=== PATIENT | male | born 1975 | race African-American/Black ===

== ENCOUNTER 2019-04-13 10:39 | Emergency (ER) | payer BC, SELFPAY ==
[2019-04-13 11:09] VITALS: BP 137/82; PULSE 96; RESP 16; TEMP 37.2; O2SAT 98
--- NOTE | 2019-04-13 11:58 | ED.GENADULT ---
HPI - General Adult General Chief complaint: Upper Respiratory Infection Stated complaint: Neck/Chest pain Time Seen by Provider: 04/13/19 11:59 Source: patient and RN notes reviewed Mode of arrival: ambulatory Limitations: no limitations History of Present Illness HPI narrative: This is a 43 years old male presents to the office for an evaluation of chest congestion since yesterday. Associated with mid back pain at times. Denies fever, sinus congestion, runny nose, abdominal pain, vomiting, or diarrhea. He tried 1 dose of Mucinex for his symptoms. Denies sick contact. He does not smoke. Related Data Allergies Allergy/AdvReac Type Severity Reaction Status Date / Time Penicillins Allergy CHILD, Verified 04/13/19 11:17 EYES ROLLED BACK IN HEAD Review of Systems Review of Systems: Narrative: CONSTITUTIONAL: Denies fever, chills ENT: Denies rhinorrhea, congestion, sore throat, otalgia. CARDIOVASCULAR: Denies chest pain, palpitation RESPIRATORY: Reports cough with chest tightness GASTROINTESTINAL: Denies abdominal pain, nausea, vomiting, diarrhea. GENITOURINARY: Denies urinary symptoms or discharge SKIN: Denies rash MUSCULOSKELETAL: Denies acute back pain NEUROLOGIC: Denies lightheaded PMFSH Social History Social History (Updated 04/13/19 @ 12:07 by MAYUR Vann) Smoking status: Never smoker Gender identity (if verbalized by the patient): Male Comments At time of signature, I agree with nursing past medical, surgical, social and family history. There is no relevant family history pertinent to the presenting complaint. Exam Narrative: Exam Narrative: GENERAL: This is a well-nourished, well-developed patient, in no apparent distress. EYES: Sclera clear/white. Vision is grossly intact. EARS: External ears normal, auditory canals clear and without drainage, TMs normal without perforation. Hearing grossly intact. NOSE: External nose normal with no obvious nasal discharge, nares without redness, no rhinorrhea. THROAT: Mucous membranes moist, posterior pharynx clear. NECK: Neck supple, non-tender without lymphadenopathy, masses or thyromegaly. CARDIOVASCULAR: Regular rate and rhythm without murmurs, gallops, or rubs. RESPIRATORY: Clear to auscultation. Breath sounds equal bilaterally. No wheezes, rales, or rhonchi. GASTROINTESTINAL: Abdomen soft, non-tender, nondistended. Bowel sounds are active. No hepato-splenomegaly, or palpable masses. No guarding. SKIN: warm, intact with no suspicious lesions or rash, good texture and turgor. NEURO: awake, alert, and oriented to person, place and time. There were no obvious focal neurologic abnormalities. Steady gait EXTREMITIES: Normal range of motion. No edema. No calf tenderness. Negative Homans sign bilaterally. BACK: Nontender without deformity or crepitance. No flank tenderness. [place] Coma Scale Eye Opening: Spontaneous 4 [place] Coma Scale Motor: Obeys Commands 6 [place] Coma Scale Verbal: Oriented 5 Course Vital Signs Vital signs: Vital Signs Pulse Rate 96 04/13/19 11:09 Respiratory Rate 16 04/13/19 11:09 Blood Pressure 137/82 04/13/19 11:09 Pulse Oximetry 98 04/13/19 11:09 Pulse Rate 96 04/13/19 11:09 Respiratory Rate 16 04/13/19 11:09 Blood Pressure 137/82 04/13/19 11:09 Pulse Oximetry 98 04/13/19 11:09 Medical Decision Making MDM Narrative Medical decision making narrative: Discharge instructions reviewed with patient, as well as provided in writing per nursing staff. The instructions also include specific and strict return/GO TO THE ER as well as f/u information. All questions have been answered, and the patient deny any further questions with discharge and discharge plan. Differential Diagnosis Differential Diagnosis: pneumonia, Allergic Rhinitis, Upper respiratory cough syndrome, Pharyngitis, Sinusitis, Bronchitis, otitis media, viral URI, Asthma/reactive airway disease, influenza Vital
== END 2019-04-13 12:17 | disposition home or self-care (01) ==
PROVIDERS: Emergency Provider Nurse Practitioner
DX: R05 Cough (principal)
CPT/HCPCS: 99203; G0463

== ENCOUNTER 2019-05-18 15:29 | Inpatient (IN) | payer BC, SELFPAY ==
[2019-05-18] VITALS (9 sets, daily range): BP systolic 110–168; BP diastolic 56–81; PULSE 72–122; RESP 16–30; TEMP 37.2–39; O2SAT 86–100
--- NOTE | ~2019-05-18 | XR_ITS ---
EXAMINATION: XR chest 1V portable DATE: 05/26/2019 06:35 INDICATION: COVID-19 pneumonia. TECHNIQUE: A single frontal view of the chest was obtained. COMPARISON: Chest single view 05/23/2019 FINDINGS: There are patchy airspace opacities involving all lung zones bilaterally. No pleural effusi on or pneumothorax. The heart size is normal. Again seen is an opaque foreign body overlying right up per quadrant. IMPRESSION: 1. Unchanged diffuse lung disease, consistent with pneumonia versus acute respiratory distress syndro me (ARDS). Reviewed, dictated and finalized at location A. IMPRESSION: 1. Unchanged diffuse lung disease, consistent with pneumonia versus acute respi ratory distress syndrome (ARDS).
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
--- NOTE | ~2019-05-18 | XR_ITS ---
EXAMINATION: XR chest 1V portable DATE: 05/23/2019 06:50 INDICATION: Covid-19 acute respiratory failure. TECHNIQUE: A single frontal view of the chest was obtained. COMPARISON: Chest single view 05/21/2019 FINDINGS: There are patchy airspace opacities in all lung zones bilaterally. No pleural effusion or p neumothorax. The heart size is normal. A chronic radiopaque foreign body overlies right upper quadran t of the abdomen. IMPRESSION: 1. Unchanged diffuse lung disease, consistent with pneumonia versus pulmonary edema versus acute resp iratory distress syndrome (ARDS). Reviewed, dictated and finalized at location A. IMPRESSION: 1. Unchanged diffuse lung disease, consistent with pneumonia versus pulmonary e [place] versus acute respiratory distress syndrome (ARDS).
--- NOTE | ~2019-05-18 | XR_ITS ---
EXAMINATION: XR chest 1V portable DATE: 05/21/2019 06:36 INDICATION: Pneumonia. TECHNIQUE: A single frontal view of the chest was obtained. COMPARISON: Chest single view 05/18/2019 FINDINGS: There are patchy airspace opacities involving all lung zones bilaterally. No pleural effusi on or pneumothorax. The heart size is normal. Again seen is a 14 mm radiopaque foreign body overlying right upper quadrant of the abdomen. IMPRESSION: 1. Worsened diffuse lung disease, consistent with pneumonia versus pulmonary edema versus acute respi ratory distress syndrome (ARDS). Reviewed, dictated and finalized at location A. IMPRESSION: 1. Worsened diffuse lung disease, consistent with pneumonia versus pulmonary ed [place] versus acute respiratory distress syndrome (ARDS).
--- NOTE | 2019-05-18 15:42 | ECG_ITS ---
Measurements Intervals [place] Rate: 123 P: 184 [place]: 179 QRS: -19 QRSD: 85 T: 8 QT: 307 QTc: 440 Interpretive Statements SINUS TACHYCARDIA INCOMPLETE RIGHT BUNDLE BRANCH BLOCK DELAYED PRECORDIAL R/S TRANSITION VOLTAGE CRITERIA FOR LVH BORDERLINE T WAVE ABNORMALITY- INFERIOR LEADS ABNORMAL ECG Electronically Signed On 05-18-2019 20:04:02 CDT by Abhijeet Nieto D.O.
--- NOTE | 2019-05-18 15:55 | ED.SOB ---
HPI - SOB/Dyspnea General Chief Complaint: Shortness of Breath/Dyspnea Stated Complaint: fever/sob/cough Time Seen by Provider: 05/18/19 15:33 History of Present Illness HPI Narrative: Patient is a 43-year-old male who presents the ER with cold symptoms and shortness of breath. He reports 3 days ago he began having fevers and fatigue. He reports mild cough that is nonproductive. He has been taking Tylenol for his fever. Shortness of breath began yesterday and is persistent. Worse with any type of activity. He works at [employer]. No known contacts with Covid positive patient. No foreign travel. Related Data Allergies Allergy/AdvReac Type Severity Reaction Status Date / Time Penicillins Allergy CHILD, Verified 04/13/19 11:17 EYES ROLLED BACK IN HEAD Review of Systems Review of Systems: All systems reviewed & are unremarkable except as noted in HPI and below Constitutional: Constitutional: Reports chills, Reports fever(s) and Reports weakness ENT: Denies nasal congestion and Denies sore throat Cardiovascular: Cardiovascular: Denies chest pain and Reports rapid heart rate Respiratory: Respiratory: Denies chest congestion, Reports cough, Reports dyspnea and Denies wheezing Gastrointestinal: Gastrointestinal: Denies nausea and Denies vomiting PMFSH Past Medical History Medical History (Updated 05/18/19 @ 18:35 by Jp Lorenzana MD) No pertinent past medical history Surgical History Surgical History (Updated 05/18/19 @ 18:35 by Jp Lorenzana MD) No pertinent past surgical history Social History Social History (Updated 04/13/19 @ 12:07 by MAYUR Vann) Smoking status: Never smoker Gender identity (if verbalized by the patient): Male Exam Narrative: Exam Narrative: GENERAL: Well-appearing, well-nourished, and in no acute distress. HEAD: Normocephalic, atraumatic. NECK: Supple. CHEST: Clear to auscultation. No respiratory distress. HEART: Tachycardic and regular.. Normal peripheral pulses. ABDOMEN: Soft, nontender, nondistended. EXTREMITIES: Normal range of motion. No edema. SKIN: Warm, dry, no rash. NEURO: Alert and oriented x3. PSYCH: Normal mood and affect. Course Consultations Consultation #1: Discussed case with Olga Lidia Christian NP, who accepted admission. Patient hypoxic with ambulation in his room. Now requiring supplemental O2. Date: 05/18/19 Time: 16:43 Vital Signs Vital signs: Vital Signs Temperature 102.2 F H 05/18/19 15:34 Pulse Rate 120 H 05/18/19 15:34 Respiratory Rate 18 05/18/19 15:34 Blood Pressure 125/69 05/18/19 15:34 Pulse Oximetry 93 05/18/19 15:34 Temperature 99.4 F 05/18/19 17:15 Pulse Rate 113 H 05/18/19 18:01 Respiratory Rate 20 05/18/19 18:01 Blood Pressure 168/72 H 05/18/19 17:15 Pulse Oximetry 98 05/18/19 17:15 MDM - SOB/Dyspnea Lab Data Result diagrams: 05/18/19 15:49 05/18/19 15:49 Labs: Lab Results 05/18/19 05/18/19 05/18/19 Range/Units 15:48 15:49 15:49 WBC 4.9 (4.5-10.0) K/mm3 RBC 5.11 (4.6-6.20) M/mm3 Hgb 14.2 (14.0-18.0) g/dL Hct 43.7 (42.0-52.0) % MCV 85.5 (80-100) fl MCH 27.8 (26-34) pg MCHC 32.5 (32-36) g/dl RDW 13.1 (11.5-14.5) % Plt Count 181 (150-375) k/mm3 MPV 11.0 H (7.4-10.4) fl Immature Gran % (Auto) 0.2 (0-0.5) % Neut % (Auto) 79.1 H (45.5-73.1) % Lymph % (Auto) 15.8 L (18.3-44.2) % [place] % (Auto) 4.7 (2.6-8.5) % Eos % (Auto) 0.0 (0-4.4) % Baso % (Auto) 0.2 (0.2-1.2) % Lymph # (Auto) 0.77 L (0.9-3.2) K/mm3 [place] # (Auto) 0.2 (0.1-0.6) K/mm3 Eos # (Auto) 0.0 (0-0.3) K/mm3 Baso # (Auto) 0.0 (0.0-0.1) K/mm3 Abs Immat Gran (auto) 0.01 (0.00-0.031) K/mm3 Absolute Neuts (auto) 3.8 (1.3-6.7) K/mm3 Absolute Nucleated RBC 0.0 (0.0-0.012) K/mm3 Nucleated RBC % 0.0 (0.0-0.2) % Sodium 138 (137-145) mmol/L
[2019-05-18 15:56] LABS: Basophils Percent Auto 0.2 % (0.2-1.2); Hematocrit 43.7 % (42.0-52.0); Hemoglobin 14.2 g/dL (14.0-18.0); Immature Granulocyte Absolute 0.01 K/mm3 (0.00-0.031); Immature Granulocyte Percent A 0.2 % (0-0.5); Lymphocytes Absolute Auto 0.77 K/mm3 (0.9-3.2); Lymphocytes Percent Auto 15.8 % (18.3-44.2); Mean Corpuscular HGB Conc 32.5 g/dl (32-36); Mean Corpuscular Hemoglobin 27.8 pg (26-34); Mean Corpuscular Volume 85.5 fl (80-100); Monocytes Absolute Auto 0.2 K/mm3 (0.1-0.6); Monocytes Percent Auto 4.7 % (2.6-8.5); Neutrophils Absolute Auto 3.8 K/mm3 (1.3-6.7); Neutrophils Percent Auto 79.1 % (45.5-73.1); Platelet Count Result 181 k/mm3 (150-375); Red Blood Count 5.11 M/mm3 (4.6-6.20); Red Cell Distribution Width 13.1 % (11.5-14.5); White Blood Count 4.9 K/mm3 (4.5-10.0)
[2019-05-18] MEDS: SODIUM CHLORIDE 0.9% IV 1,000 ML 999 ML IV CONT (15:57)
[2019-05-18 16:09] LABS: Alanine Aminotransferase 44 U/L (4-50); Albumin Level 4.4 g/dL (3.5-5.1); Alkaline Phosphatase 71 U/L (38-126); Aspartate Amino Transferase 40 U/L (17-59); Bilirubin,Total 0.7 mg/dL (0.2-1.3); Blood Urea Nitrogen 13 mg/dL (9-20); Calcium 8.5 mg/dL (8.4-10.2); Carbon Dioxide 27 mmol/L (22-30); Chloride 102 mmol/L (98-107); Estimated CRCL calculation 79 ml/min; Estimated Glomerular Filt Rate > 60; Glucose 129 mg/dL (75-110); Potassium 3.9 mmol/L (3.4-5.0); Sodium 138 mmol/L (137-145)
[2019-05-18] MEDS: ACETAMINOPHEN 500 MG TABLET PO (16:24)
[2019-05-18 17:01] LABS: Lactic Acid Reflex 1.5 mmol/L (0.7-2.1)
[2019-05-18 17:39] LABS: CRP 6.1 mg/dL (<1.0); Lactate Dehydrogenase 655 U/L (313-618)
--- NOTE | 2019-05-18 19:46 | ADMGEN ---
This patient, Camilo Lee, was admitted to [facility] Surg Room 332-02. Patient/family oriented to hospital policies and general routines including ID bracelet, bed and alarms, visiting hours, pain management, procedures, bathroom and other care routines, personal items, smoking policy, room service/diet, and visiting hours. Valuables list has been completed. Information on how to activate the Rapid Response Team has been discussed. Patient/Family are encouraged to report perceived risks to care and to ask questions if they do not understand what they are told or what they should do.
[2019-05-18] MEDS: ACETAMINOPHEN 325 MG TABLET 650 MG PO (19:54)
[2019-05-18] MEDS: ALBUTEROL SULFATE (*SP) AEROSOL 1 PUFF 2 PUFF INHALATION (20:37)
--- NOTE | 2019-05-18 23:14 | PM.IMHP ---
H&P: HPI History of Present Illness Chief complaint: viral pneumonia/possible covid/hypoxia Narrative: Camilo Lee is a 43 year old male who came to work with cold-like symptoms and shortness of breath. The patient stated he has been running a fever on and off for 3 days with fatigue and nonproductive cough has been dry. The patient has been using Tylenol for his fever. He denies being out of the country or traveling anywhere. He works for [employer] in said that he has been off work for at least a week now. He said he is been self quarantined for at least the last week. He has not been around any by has been positive for covid 19. He has not been around anybody else that is sick. His works from home. He has no children at home either. He is not known of anybody that was sick at work either. He states that he has been very careful going to the stores and has not been around anybody sick. He stated that the highest fever was 103. The patient stated that his shortness of breath worsened yesterday and was persistent. The patient is a nonsmoker. He does not have any chronic medical conditions. Chest x-ray was read as bilateral nonconfluent patchy opacities most likely acute acute infectious process. The patient was started on aZithromax. He was negative for influenza a and B. LDH was noted to be 655. C reactive protein 6.1. Patient was tested for covid 19 in the emergency room. We are awaiting results. Patient is currently in isolation. Date of service 05/18/2019 Review of Systems Review of Systems: All systems reviewed & are unremarkable except as noted in HPI and below Constitutional: Constitutional: Reports as per HPI and Reports no additional constitutional complaints Eyes: Eyes: Reports as per HPI and Reports no additional eye complaints ENT: Reports system reviewed and no additional complaints, except as documented and Reports Normal hearing present Cardiovascular: Cardiovascular: Reports no additional cardiovascular complaints Respiratory: Respiratory: Reports no additional respiratory complaints and Reports no additional respiratory complaints Gastrointestinal: Gastrointestinal: Reports as per HPI and Reports no additional gastrointestinal complaints Musculoskeletal: Musculoskeletal: Reports no additional musculoskeletal complaints Integumentary/Breasts: Skin/Breast: Reports system reviewed and no additional complaints, except as docu and Reports as per HPI Neurologic: Reports system reviewed and no additional complaints, except as documented, Reports as per HPI and Reports Normal hearing present Psychiatric: Psychiatric: Reports no additional psychiatric complaints and Reports as per HPI Endocrine: Endocrine: Reports no additional endocrine complaints Hematologic/Lymphatic: Hematologic/Lymphatic: Reports no additional hematologic/lymphatic complaints Allergic/Immunologic: Allergic/Immunologic: Reports no additional allergic/immunologic complaints PMFSH Past Medical History Medical History No pertinent past medical history Surgical History Surgical History No pertinent past surgical history Family History Family History (Updated 05/18/19 @ 23:19 by Olga Lidia Christian NP) Unknown No family history of disorders Social History Social History (Updated 05/18/19 @ 23:20 by Olga Lidia Christian NP) Social History: The patient stated that he has 8 children. He works at [employer] Lifelong nonsmoker no alcohol or illicit drugs. 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 The patient is a full code. Smoking status: Never smoker Alcohol intake: never Substance use: never Living arrangements: with family Gender identity (if verbalized by the patient): Male Spiritual care concerns: No Agree to blood products: Yes Meds Home Medications and Allergies Home Medications Medicat
[2019-05-19] VITALS (13 sets, daily range): BP systolic 140–159; BP diastolic 78–94; PULSE 90–111; RESP 16–22; TEMP 36.6–38.2; O2SAT 94–97
[2019-05-19] MEDS: ACETAMINOPHEN 325 MG TABLET 650 MG PO
[2019-05-19 06:21] LABS: Basophils Percent Auto 0.2 % (0.2-1.2); Hemoglobin 12.9 g/dL (14.0-18.0); Immature Granulocyte Absolute 0.01 K/mm3 (0.00-0.031); Immature Granulocyte Percent A 0.2 % (0-0.5); Lymphocytes Absolute Auto 0.75 K/mm3 (0.9-3.2); Lymphocytes Percent Auto 17.9 % (18.3-44.2); Mean Corpuscular HGB Conc 33.1 g/dl (32-36); Mean Corpuscular Volume 84.8 fl (80-100); Mean Platelet Volume 10.4 fl (7.4-10.4); Monocytes Absolute Auto 0.2 K/mm3 (0.1-0.6); Monocytes Percent Auto 5.3 % (2.6-8.5); Neutrophils Absolute Auto 3.2 K/mm3 (1.3-6.7); Neutrophils Percent Auto 76.4 % (45.5-73.1); Platelet Count Result 162 k/mm3 (150-375); Red Cell Distribution Width 12.9 % (11.5-14.5); White Blood Count 4.2 K/mm3 (4.5-10.0)
[2019-05-19 07:21] LABS: Alanine Aminotransferase 41 U/L (4-50); Albumin Level 3.9 g/dL (3.5-5.1); Alkaline Phosphatase 58 U/L (38-126); Aspartate Amino Transferase 38 U/L (17-59); Bilirubin,Total 0.7 mg/dL (0.2-1.3); Blood Urea Nitrogen 11 mg/dL (9-20); CRP 7.7 mg/dL (<1.0); Carbon Dioxide 27 mmol/L (22-30); Chloride 103 mmol/L (98-107); Estimated CRCL calculation 104 ml/min; Estimated Glomerular Filt Rate > 60; Glucose 131 mg/dL (75-110); Sodium 137 mmol/L (137-145)
[2019-05-19] MEDS: PANTOPRAZOLE 40 MG TABLET PO (09:08)
[2019-05-19] MEDS: ALBUTEROL SULFATE (*SP) AEROSOL 1 PUFF 2 PUFF INHALATION ×4 (09:08→20:22)
--- NOTE | 2019-05-19 14:22 | PM.IMPN ---
Progress Note: A&P Assessment and Plan (1) Viral pneumonia: Code(s): J12.9 - Viral pneumonia, unspecified Status: Acute Assessment and Plan: -----viral pneumonia with suspected COVID-19. Patient's LDH and CRP are elevated and ALT are within normal limits. Will continue with supportive care, throw mycin, and albuterol MDI. Patient is on 2 L oxygen at this time and doing well. Continue to monitor, await testing. (2) Suspected COVID-19 virus infection: Code(s): R68.89 - Other general symptoms and signs Status: Acute Assessment and Plan: ----see above (3) Hypoxia: Code(s): R09.02 - Hypoxemia Status: Acute Assessment and Plan: (4) Acute respiratory failure with hypoxia: Code(s): J96.01 - Acute respiratory failure with hypoxia Status: Acute Assessment and Plan: -----due to above. Wean oxygen as tolerated Time Spent With Patient Time with patient: 25 - 35 minutes Subjective Date/time seen: 05/19/19 14:22 Interval history: Pt is a 43-year-old male who is here for viral pneumonia suspected COVID-19. Patient was seen today and states he feels okay. He feels short of breath randomly at times and does not think this is associated with any movement. He is coughing a lot. He denies fevers, chills, abdominal pain, leg swelling, diarrhea, or lack of smell or taste. He has stabbing chest pain on the left side of his chest that hurts when he coughs. Review of Systems Review of Systems: All systems reviewed & are unremarkable except as noted in HPI and below Exam Narrative: Exam Narrative: General: Well developed well nourished patient resting comfortably in bed in NAD on 2 L of oxygen HEENT: normocephalic Neck: supple Neuro: Alert and oriented x4 CV:RRR. Telemetry without significant alarm reviews Resp: Rhonchi mostly in the left lung. Please note, lung exam was done with the disposable stethoscope which lowers sensitivity. Patient had no conversational dyspnea or retractions. Abd: Soft, non distended. No pain to palpation. Positive bowel sounds Extremities: No swelling, erythema, or pain to palpation. Objective Data Vital Signs Vital Signs: Vital Signs - 24 hr 05/18/19 15:34 05/18/19 16:21 05/18/19 16:22 Temperature 102.2 F H Pulse Rate 120 H 122 H 119 H Respiratory Rate 18 30 H 28 H Blood Pressure 125/69 110/81 Pulse Oximetry 93 86 L 100 05/18/19 16:23 05/18/19 17:15 05/18/19 18:00 Temperature 99.4 F 99.6 F Pulse Rate 119 H 78 100 Respiratory Rate 18 16 Blood Pressure 168/72 H 160/74 H Pulse Oximetry 98 94 05/18/19 18:01 05/18/19 20:00 05/18/19 22:00 Temperature 99.0 F 100.6 F H Pulse Rate 113 H 99 72 Respiratory Rate 20 18 Blood Pressure 132/56 L Pulse Oximetry 94 05/19/19 00:00 05/19/19 02:00 05/19/19 04:00 Temperature 100.6 F H 99.0 F Pulse Rate 99 99 101 H Respiratory Rate 18 Blood Pressure 159/93 H Pulse Oximetry 94 05/19/19 05:15 05/19/19 05:40 05/19/19 08:00 Temperature 99.5 F 99.5 F Pulse Rate 100 90 Respiratory Rate 20 Blood Pressure 158/90 H Pulse Oximetry 94 05/19/19 10:00 05/19/19 14:00 Temperature 98.2 F 97.8 F Pulse Rate 96 101 H Respiratory Rate 16 18 Blood Pressure 141/82 H 142/78 H Pulse Oximetry 94 94 Intake/Output Intake/Output: Intake & Output 05/16/19 05/17/19 05/18/19 05/19/19 23:59 23:59 23:59 23:59 Intake Total 1250 1100 Balance 1250 1100 Meds/Results Medications: Active Medications Generic Name Dose Route Start Last Admin Trade Name Freq PRN Reason Stop Dose Admin Acetaminophen 650 mg 05/18/19 16:54 05/19/19 00:00 Tylenol Tablet PO 650 mg Q4H PRN Administration Mild Pain (1-3) or Fever Hydrocodone Bitart/Acetaminophen 1 tab 05/18/19 16:54 05/19/19 05:16 [place] 5-325 Mg PO 1 tab Q4H PRN Administration Pain Rated 4-6 Albuterol 2 puff 05/18/19 20:00 05/19/19 12:44
[2019-05-20] VITALS (15 sets, daily range): BP systolic 132–148; BP diastolic 76–89; PULSE 96–111; RESP 16–22; TEMP 36.8–38.1; O2SAT 91–95
[2019-05-20 05:56] LABS: Hematocrit 40.8 % (42.0-52.0); Hemoglobin 13.1 g/dL (14.0-18.0); Mean Corpuscular HGB Conc 32.1 g/dl (32-36); Mean Corpuscular Hemoglobin 28.1 pg (26-34); Mean Corpuscular Volume 87.4 fl (80-100); Mean Platelet Volume 10.8 fl (7.4-10.4); Platelet Count Result 187 k/mm3 (150-375); Red Blood Count 4.67 M/mm3 (4.6-6.20); Red Cell Distribution Width 13.2 % (11.5-14.5)
[2019-05-20 05:58] LABS: Alanine Aminotransferase 39 U/L (4-50); Albumin Level 4.1 g/dL (3.5-5.1); Alkaline Phosphatase 67 U/L (38-126); Aspartate Amino Transferase 37 U/L (17-59); Bilirubin,Total 0.7 mg/dL (0.2-1.3); Blood Urea Nitrogen 11 mg/dL (9-20); Calcium 8.3 mg/dL (8.4-10.2); Carbon Dioxide 31 mmol/L (22-30); Chloride 99 mmol/L (98-107); Estimated CRCL calculation 85 ml/min; Estimated Glomerular Filt Rate > 60; Glucose 143 mg/dL (75-110); Potassium 4.1 mmol/L (3.4-5.0); Sodium 136 mmol/L (137-145)
[2019-05-20] MEDS: PANTOPRAZOLE 40 MG TABLET PO (08:36)
[2019-05-20] MEDS: ALBUTEROL SULFATE (*SP) AEROSOL 1 PUFF 2 PUFF INHALATION ×4 (08:51→21:09)
--- NOTE | 2019-05-20 14:21 | PM.IMPN ---
Progress Note: A&P Assessment and Plan (1) Viral pneumonia: Code(s): J12.9 - Viral pneumonia, unspecified Status: Acute Assessment and Plan: -----viral pneumonia with suspected COVID-19. Patient's LDH and CRP are elevated. Will re-run this tomorrow. Will continue with supportive care, azithromycin and albuterol MDI. Patient is on 4 L oxygen at this time and doing well. Continue to monitor, await testing. Wean o2 as tolerated. Will repeat CXR tomorrow AM. (2) Suspected COVID-19 virus infection: Code(s): R68.89 - Other general symptoms and signs Status: Acute Assessment and Plan: ----see above (3) Hypoxia: Code(s): R09.02 - Hypoxemia Status: Acute (4) Acute respiratory failure with hypoxia: Code(s): J96.01 - Acute respiratory failure with hypoxia Status: Acute Assessment and Plan: -----due to above. Wean oxygen as tolerated Subjective Date/time seen: 05/20/19 14:21 Interval history: Pt is a 44-year-old male who is here for viral pneumonia suspected COVID-19. Patient was seen today and states he feels okay and feels better than yesterday. He feels short of breath randomly mostly when he coughs. he does have some left sided chest pain when he coughs that is improving as well. he is eating and drinking fine without issues. He denies fevers, chills, abdominal pain, leg swelling, diarrhea, or lack of smell or taste. He is a little sad that he is in the hospital on his birthday. Exam Narrative: Exam Narrative: General: Well developed well nourished patient resting comfortably in bed in [facility] on 4 L of oxygen HEENT: normocephalic Neck: supple Neuro: Alert and oriented x4 CV:RRR. Telemetry without significant alarm reviews. It does show occasional tachycardia up to 120 Resp: Decreased breath sounds with no wheezing. Please note, lung exam was done with the disposable stethoscope which lowers sensitivity. Patient had no conversational dyspnea or retractions. Abd: Soft, non distended. No pain to palpation. Positive bowel sounds Extremities: No swelling, erythema, or pain to palpation. Objective Data Vital Signs Vital Signs: Vital Signs - 24 hr 05/19/19 16:00 05/19/19 18:00 05/19/19 20:00 Temperature 100.7 F H Pulse Rate 111 H 106 H 96 Respiratory Rate 22 H Blood Pressure 143/94 H Pulse Oximetry 94 05/19/19 22:00 05/20/19 00:00 05/20/19 02:00 Temperature 99.2 F 98.8 F Pulse Rate 97 96 111 H Respiratory Rate 20 22 H Blood Pressure 140/80 132/76 Pulse Oximetry 97 94 05/20/19 04:00 05/20/19 06:00 05/20/19 08:00 Temperature 99 F Pulse Rate 102 H 96 97 Respiratory Rate 20 Blood Pressure 143/87 H Pulse Oximetry 94 05/20/19 08:52 05/20/19 11:18 05/20/19 12:00 Temperature 98.3 F Pulse Rate 98 101 H Respiratory Rate 16 Blood Pressure 148/83 H Pulse Oximetry 93 91 Intake/Output Intake/Output: Intake & Output 05/17/19 05/18/19 05/19/19 05/20/19 23:59 23:59 23:59 23:59 Intake Total 1250 1989 690 Balance 1250 1989 690 Meds/Results Medications: Active Medications Generic Name Dose Route Start Last Admin Trade Name Freq PRN Reason Stop Dose Admin Acetaminophen 650 mg 05/19/19 14:33 Tylenol Tablet PO Q4H PRN Mild Pain (1-5) Or Fever Hydrocodone Bitart/Acetaminophen 1 tab 05/19/19 14:33 05/20/19 12:39 [place] 5-325 Mg PO 1 tab Q4H PRN Administration Pain Rated 6-10 Albuterol 2 puff 05/18/19 20:00 05/20/19 13:05 Proventil Hfa INHALATION 2 puff QIDRT VIKA Administration Albuterol/Ipratropium 1 puff 05/18/19 23:24 Combivent Respimat INHALATION QIDRT PRN Shortness Of Breath Azithromycin 500 mg in 250 mls @ 250 mls/hr 05/19/19 09:00 05/20/19 09:36 Zithromax IVPB Infused Q24H VIKA Infusion Ondansetron HCl 4 mg 05/18/19 16:54 Zofran Inj IV PUSH Q4H PRN Nausea Pantoprazole Sodium 40 m
[2019-05-20] MEDS: TEMAZEPAM 15 MG CAPSULE PO (23:15)
[2019-05-21] VITALS (13 sets, daily range): BP systolic 132–147; BP diastolic 71–88; PULSE 92–100; RESP 16–20; TEMP 36.7–37.7; O2SAT 90–99
[2019-05-21 06:15] LABS: Hematocrit 39.1 % (42.0-52.0); Hemoglobin 12.8 g/dL (14.0-18.0); Mean Corpuscular HGB Conc 32.7 g/dl (32-36); Mean Corpuscular Hemoglobin 27.9 pg (26-34); Mean Corpuscular Volume 85.2 fl (80-100); Mean Platelet Volume 10.6 fl (7.4-10.4); Platelet Count Result 226 k/mm3 (150-375); Red Blood Count 4.59 M/mm3 (4.6-6.20); Red Cell Distribution Width 12.9 % (11.5-14.5); White Blood Count 5.4 K/mm3 (4.5-10.0)
[2019-05-21 06:37] LABS: Blood Urea Nitrogen 13 mg/dL (9-20); Calcium 8.6 mg/dL (8.4-10.2); Carbon Dioxide 30 mmol/L (22-30); Chloride 100 mmol/L (98-107); Estimated CRCL calculation 103 ml/min; Estimated Glomerular Filt Rate > 60; Glucose 129 mg/dL (75-110); Lactate Dehydrogenase 1033 U/L (313-618); Potassium 4.2 mmol/L (3.4-5.0); Sodium 138 mmol/L (137-145)
[2019-05-21 06:52] LABS: CRP 15.2 mg/dL (<1.0)
--- NOTE | 2019-05-21 07:39 | PC.NURSE ---
I notified Cristy GOMEZ of CXR results from this morning. ALso reviewed LFTs and elevated CRP as well as temp curve overnight. I advised her that current 02 sat was 90% on 6L/NC (was on 2 L /NC yesterday am with 02 sat 96%). I reported that staff state no increasing SOB overnight and that 02 maintained at 6L/NC since yesterday afternoon. Patient denies increased SOB at this time - no change from yesterday. No new orders at this time.
[2019-05-21] MEDS: ALBUTEROL SULFATE (*SP) AEROSOL 1 PUFF 2 PUFF INHALATION ×4 (09:40→20:07)
[2019-05-21] MEDS: PANTOPRAZOLE 40 MG TABLET PO (11:18)
--- NOTE | 2019-05-21 11:42 | PM.IMPN ---
Progress Note: A&P Assessment and Plan (1) Viral pneumonia: Code(s): J12.9 - Viral pneumonia, unspecified Status: Acute Assessment and Plan: Viral pneumonia with suspected COVID-19 - testing is pending. LDH and CRP elevated. Continue azithromycin (day 3) and albuterol MDI. Continue supportive care and supplemental O2. Requiring up to 6L O2 nasal cannula today and repeat chest XR this AM with worsening airspace disease, despite the patient feeling improved. (2) Suspected COVID-19 virus infection: Code(s): R68.89 - Other general symptoms and signs Status: Acute Assessment and Plan: See above. (3) Acute respiratory failure with hypoxia: Code(s): J96.01 - Acute respiratory failure with hypoxia Status: Acute Assessment and Plan: Secondary to above. Wean O2 as tolerated. Subjective Date/time seen: 05/21/19 0830 Interval history: Mr. Lee is a 44yo M admitted for pneumonia and suspected COVID-19. He reports feeling better than yesterday but continues to feel short of breath with little activity. He denies chest pain. He denies abdominal pain, nausea, and vomiting. Tolerating oral intake. Review of Systems Review of Systems: Narrative: Twelve systems were reviewed with pertinent positives and negatives as per HPI. Exam Narrative: Exam Narrative: General: Male resting supine in bed in no acute distress. HEENT: Normocephalic, EOMI, oral mucosa moist. Cardiovascular: Rate and rhythm are regular. Respiratory: Coarse breath sounds throughout. Respirations are even and nonlabored. Abdomen: Soft, non-tender, non-distended, bowel sounds present. Extremities: Peripheral pulses intact. No edema. Neuro: No focal neurological deficits. Speech is clear. Objective Data Vital Signs Vital Signs: Last Vital Signs Temp 98.3 F 05/21/19 14:00 Pulse 95 05/21/19 16:00 Resp 18 05/21/19 14:00 BP 132/87 05/21/19 14:00 Pulse Ox 95 05/21/19 14:00 Intake/Output Intake/Output: Intake & Output 05/18/19 05/19/19 05/20/19 05/21/19 23:59 23:59 23:59 23:59 Intake Total 1250 1989 1790 550 Output Total 200 Balance 1250 1989 1789 350 Meds/Results Medications: Active Medications Generic Name Dose Route Start Last Admin Trade Name Freq PRN Reason Stop Dose Admin Acetaminophen 650 mg 05/19/19 14:33 Tylenol Tablet PO Q4H PRN Mild Pain (1-5) Or Fever Hydrocodone Bitart/Acetaminophen 1 tab 05/19/19 14:33 05/21/19 11:18 [place] 5-325 Mg PO 1 tab Q4H PRN Administration Pain Rated 6-10 Albuterol 2 puff 05/18/19 20:00 05/21/19 09:40 Proventil Hfa INHALATION 2 puff QIDRT VIKA Administration Albuterol/Ipratropium 1 puff 05/18/19 23:24 Combivent Respimat INHALATION QIDRT PRN Shortness Of Breath Azithromycin 500 mg in 250 mls @ 250 mls/hr 05/19/19 09:00 05/21/19 11:36 Zithromax IVPB 250 mls/hr Q24H VIKA Administration Ondansetron HCl 4 mg 05/18/19 16:54 Zofran Inj IV PUSH Q4H PRN Nausea Pantoprazole Sodium 40 mg 05/19/19 09:00 05/21/19 11:18 Protonix PO 40 mg DAILY VIKA Administration Temazepam 15 mg 05/20/19 22:33 05/20/19 23:15 Restoril PO 15 mg HS PRN Administration Insomnia Radiology Results: ITS Impressions Chest X-Ray 05/21/19 07:05 IMPRESSION: 1. Worsened diffuse lung disease, consistent with pneumonia versus pulmonary edema versus acute respiratory distress syndrome (ARDS). Labs Labs: Laboratory Tests 05/21/19 06:04 05/21/19 06:04 Quality VTE Prophylaxis VTE prophylaxis: mechanical ordered
[2019-05-22] VITALS (11 sets, daily range): BP systolic 125–159; BP diastolic 68–97; PULSE 84–103; RESP 12–22; TEMP 36.3–36.8; O2SAT 91–94; BMI 34.0
[2019-05-22 06:01] LABS: Basophils Percent Auto 0.4 % (0.2-1.2); Eosinophils Absolute Auto 0.1 K/mm3 (0-0.3); Eosinophils Percent Auto 1.8 % (0-4.4); Hematocrit 41.2 % (42.0-52.0); Hemoglobin 13.4 g/dL (14.0-18.0); Immature Granulocyte Absolute 0.07 K/mm3 (0.00-0.031); Immature Granulocyte Percent A 1.4 % (0-0.5); Lymphocytes Percent Auto 17.6 % (18.3-44.2); Mean Corpuscular HGB Conc 32.5 g/dl (32-36); Mean Corpuscular Hemoglobin 28.1 pg (26-34); Mean Corpuscular Volume 86.4 fl (80-100); Mean Platelet Volume 10.3 fl (7.4-10.4); Monocytes Absolute Auto 0.4 K/mm3 (0.1-0.6); Monocytes Percent Auto 7.3 % (2.6-8.5); Neutrophils Absolute Auto 3.7 K/mm3 (1.3-6.7); Neutrophils Percent Auto 71.5 % (45.5-73.1); Platelet Count Result 251 k/mm3 (150-375); Red Blood Count 4.77 M/mm3 (4.6-6.20); Red Cell Distribution Width 12.6 % (11.5-14.5); White Blood Count 5.1 K/mm3 (4.5-10.0)
[2019-05-22 06:23] LABS: Alanine Aminotransferase 165 U/L (4-50); Alkaline Phosphatase 79 U/L (38-126); Aspartate Amino Transferase 139 U/L (17-59); Bilirubin,Total 0.7 mg/dL (0.2-1.3); Blood Urea Nitrogen 15 mg/dL (9-20); CRP 7.7 mg/dL (<1.0); Calcium 8.7 mg/dL (8.4-10.2); Carbon Dioxide 34 mmol/L (22-30); Chloride 100 mmol/L (98-107); Estimated CRCL calculation 122 ml/min; Estimated Glomerular Filt Rate > 60; Glucose 127 mg/dL (75-110); Lactate Dehydrogenase 1177 U/L (313-618); Magnesium 2.8 mg/dL (1.6-2.3); Phosphorus 4.6 mg/dL (2.5-4.5); Potassium 4.2 mmol/L (3.4-5.0); Sodium 140 mmol/L (137-145)
[2019-05-22] MEDS: PANTOPRAZOLE 40 MG TABLET PO (08:15)
[2019-05-22] MEDS: ALBUTEROL SULFATE (*SP) AEROSOL 1 PUFF 2 PUFF INHALATION ×3 (10:55→20:10)
--- NOTE | 2019-05-22 12:07 | PM.IMPN ---
Progress Note: A&P Assessment and Plan (1) Viral pneumonia: Code(s): J12.9 - Viral pneumonia, unspecified Status: Acute Assessment and Plan: Pneumonia, COVID-19 positive. Continue azithromycin (day 4) and albuterol MDI. Continue supportive care and supplemental O2. O2 requirements increasing today despite patient feeling about the same, from 6L now to 9L HFNC. Encourage prone positioning as often and as long as he can tolerate. Repeat chest XR in AM. (2) COVID-19: Code(s): U07.1 - COVID-19 Status: Acute Assessment and Plan: See above. (3) Acute respiratory failure with hypoxia: Code(s): J96.01 - Acute respiratory failure with hypoxia Status: Acute Assessment and Plan: Secondary to above. Wean O2 as tolerated. Subjective Date/time seen: 05/22/19 12:15 Interval history: Mr. Lee is a 44yo M admitted for pneumonia and is COVID-19 positive. He continues to feel mildly short of breath today and notes that he feels about the same as yesterday. He denies chest pain. He denies abdominal pain, nausea, or vomiting, tolerating oral intake. Wants to know when he can go home. Review of Systems Review of Systems: Narrative: Twelve systems were reviewed with pertinent positives and negatives as per HPI. Exam Narrative: Exam Narrative: General: Male resting supine in bed in no acute distress. HEENT: Normocephalic, EOMI, oral mucosa moist. Cardiovascular: Rate and rhythm are regular. Respiratory: Coarse breath sounds throughout. Respirations are even and nonlabored. Abdomen: Soft, non-tender, non-distended, bowel sounds present. Extremities: Peripheral pulses intact. No edema. Neuro: No focal neurological deficits. Speech is clear. Objective Data Vital Signs Vital Signs: Last Vital Signs Temp 98.2 F 05/22/19 16:03 Pulse 92 04/08/20 16:22 Resp 20 05/22/19 16:03 BP 148/94 H 05/22/19 16:03 Pulse Ox 94 05/22/19 16:03 Intake/Output Intake/Output: Intake & Output 05/19/19 05/20/19 05/21/19 05/22/19 23:59 23:59 23:59 23:59 Intake Total 1989 1790 1960 420 Output Total 200 300 Balance 1989 1789 1760 120 Meds/Results Medications: Active Medications Generic Name Dose Route Start Last Admin Trade Name Freq PRN Reason Stop Dose Admin Acetaminophen 650 mg 05/19/19 14:33 Tylenol Tablet PO Q4H PRN Mild Pain (1-5) Or Fever Hydrocodone Bitart/Acetaminophen 1 tab 05/19/19 14:33 05/22/19 11:08 [place] 5-325 Mg PO 1 tab Q4H PRN Administration Pain Rated 6-10 Albuterol 2 puff 05/18/19 20:00 05/22/19 10:55 Proventil Hfa INHALATION 2 puff QIDRT VIKA Administration Albuterol/Ipratropium 1 puff 05/18/19 23:24 Combivent Respimat INHALATION QIDRT PRN Shortness Of Breath Azithromycin 500 mg in 250 mls @ 250 mls/hr 05/19/19 09:00 05/22/19 08:16 Zithromax IVPB 250 mls/hr Q24H VIKA Administration Ondansetron HCl 4 mg 05/18/19 16:54 Zofran Inj IV PUSH Q4H PRN Nausea Pantoprazole Sodium 40 mg 05/19/19 09:00 05/22/19 08:15 Protonix PO 40 mg DAILY VIKA Administration Temazepam 15 mg 05/20/19 22:33 05/20/19 23:15 Restoril PO 15 mg HS PRN Administration Insomnia Radiology Results: ITS Impressions Chest X-Ray 05/21/19 07:05 IMPRESSION: 1. Worsened diffuse lung disease, consistent with pneumonia versus pulmonary edema versus acute respiratory distress syndrome (ARDS). Labs Labs: Laboratory Tests 05/22/19 05:45 05/22/19 05:44 Microbiology 05/20/19 03:33 Sputum Sputum Culture - Preliminary Quality VTE Prophylaxis VTE prophylaxis: mechanical ordered
--- NOTE | 2019-05-22 18:35 | PCRCNOTE ---
Window of time for administration has passed. See next scheduled administration.
[2019-05-23] VITALS (12 sets, daily range): BP systolic 113–160; BP diastolic 53–104; PULSE 83–100; RESP 14–22; TEMP 36.6–36.9; O2SAT 90–98
[2019-05-23 06:10] LABS: Basophils Percent Auto 0.5 % (0.2-1.2); Eosinophils Absolute Auto 0.1 K/mm3 (0-0.3); Eosinophils Percent Auto 2.5 % (0-4.4); Hematocrit 41.6 % (42.0-52.0); Hemoglobin 13.7 g/dL (14.0-18.0); Immature Granulocyte Absolute 0.09 K/mm3 (0.00-0.031); Immature Granulocyte Percent A 1.6 % (0-0.5); Lymphocytes Absolute Auto 0.99 K/mm3 (0.9-3.2); Lymphocytes Percent Auto 17.6 % (18.3-44.2); Mean Corpuscular HGB Conc 32.9 g/dl (32-36); Mean Corpuscular Hemoglobin 28.2 pg (26-34); Mean Corpuscular Volume 85.6 fl (80-100); Mean Platelet Volume 10.2 fl (7.4-10.4); Monocytes Absolute Auto 0.4 K/mm3 (0.1-0.6); Monocytes Percent Auto 7.1 % (2.6-8.5); Neutrophils Percent Auto 70.7 % (45.5-73.1); Platelet Count Result 329 k/mm3 (150-375); Red Blood Count 4.86 M/mm3 (4.6-6.20); Red Cell Distribution Width 12.5 % (11.5-14.5); White Blood Count 5.6 K/mm3 (4.5-10.0)
[2019-05-23 06:41] LABS: Alanine Aminotransferase 152 U/L (4-50); Albumin Level 3.9 g/dL (3.5-5.1); Alkaline Phosphatase 79 U/L (38-126); Aspartate Amino Transferase 101 U/L (17-59); Bilirubin,Total 0.6 mg/dL (0.2-1.3); Blood Urea Nitrogen 15 mg/dL (9-20); Calcium 9.3 mg/dL (8.4-10.2); Carbon Dioxide 37 mmol/L (22-30); Chloride 101 mmol/L (98-107); Estimated CRCL calculation 111 ml/min; Estimated Glomerular Filt Rate > 60; Glucose 118 mg/dL (75-110); Potassium 4.1 mmol/L (3.4-5.0); Sodium 142 mmol/L (137-145)
--- NOTE | 2019-05-23 09:11 | PM.IMPN ---
Progress Note: A&P Assessment and Plan (1) Viral pneumonia: Code(s): J12.9 - Viral pneumonia, unspecified Status: Acute Assessment and Plan: Pneumonia, COVID-19 positive. Continue azithromycin (day 5) and albuterol MDI. Continue supportive care and supplemental O2. O2 requirements increasing despite patient feeling about the same, now to 9L HFNC. Encourage prone positioning as often and as long as he can tolerate. Discussed this in detail with patient and nursing. RN aware and agreed to chart in the Activity Assessment every 4 hours to help document how long he is able to tolerate proning. Repeat chest XR in AM. (2) COVID-19: Code(s): U07.1 - COVID-19 Status: Acute Assessment and Plan: See above. Trend transaminitis and other acute phase reactants (LDH, ferritin, CRP). (3) Acute respiratory failure with hypoxia: Code(s): J96.01 - Acute respiratory failure with hypoxia Status: Acute Assessment and Plan: Secondary to above. Wean O2 as tolerated. Subjective Date/time seen: 05/23/19 0845 Interval history: Mr. Lee is a 44yo M admitted for pneumonia and is COVID-19 positive. He describes his shortness of breath feels the same as yesterday. He notes getting up to use the restroom makes him mildly short of breath but he is able to catch his breath once he comes back to sit down. He denies chest pain or calf tenderness. He is tolerating oral intake without nausea, vomiting, or abdominal pain. Detailed discussion was held with the patient regarding being in a prone position for as long and as often as he can tolerate today. Review of Systems Review of Systems: Narrative: Twelve systems were reviewed with pertinent positives and negatives as per HPI. Exam Narrative: Exam Narrative: General: Male resting semi cordova's position in bed in no acute distress. HEENT: Normocephalic, EOMI, oral mucosa moist. Cardiovascular: Rate and rhythm are regular. Respiratory: Coarse breath sounds throughout. Respirations are even and nonlabored. Tolerating 9L HFNC at 96% at time of my exam. Abdomen: Soft, non-tender, non-distended, bowel sounds present. Extremities: Peripheral pulses intact. No edema or pain to palpation. Neuro: No focal neurological deficits. Speech is clear. Objective Data Vital Signs Vital Signs: Last Vital Signs Temp 97.9 F 05/23/19 04:00 Pulse 90 05/23/19 04:00 Resp 14 05/23/19 04:00 BP 131/83 05/23/19 04:00 Pulse Ox 92 05/23/19 04:00 Intake/Output Intake/Output: Intake & Output 05/20/19 05/21/19 05/22/19 05/23/19 23:59 23:59 23:59 23:59 Intake Total 1790 1960 1670 Output Total 200 550 550 Balance 1790 1760 1120 -550 Meds/Results Medications: Active Medications Generic Name Dose Route Start Last Admin Trade Name Freq PRN Reason Stop Dose Admin Acetaminophen 650 mg 05/19/19 14:33 Tylenol Tablet PO Q4H PRN Mild Pain (1-5) Or Fever Hydrocodone Bitart/Acetaminophen 1 tab 05/19/19 14:33 05/23/19 05:28 [place] 5-325 Mg PO 1 tab Q4H PRN Administration Pain Rated 6-10 Albuterol 2 puff 05/18/19 20:00 05/22/19 20:10 Proventil Hfa INHALATION 2 puff QIDRT VIKA Administration Albuterol/Ipratropium 1 puff 05/18/19 23:24 Combivent Respimat INHALATION QIDRT PRN Shortness Of Breath Azithromycin 500 mg in 250 mls @ 250 mls/hr 05/19/19 09:00 05/22/19 09:16 Zithromax IVPB Infused Q24H VIKA Infusion Ondansetron HCl 4 mg 05/18/19 16:54 Zofran Inj IV PUSH Q4H PRN Nausea Pantoprazole Sodium 40 mg 05/19/19 09:00 05/22/19 08:15 Protonix PO 40 mg DAILY VIKA Administration Temazepam 15 mg 05/20/19 22:33 05/20/19 23:15 Restoril PO 15 mg HS PRN Administration Insomnia Radiology Results: Chest X-Ray 05/18/19 16:02 IMPRESSION: [place]
[2019-05-23] MEDS: PANTOPRAZOLE 40 MG TABLET PO (09:35)
[2019-05-23] MEDS: ALBUTEROL SULFATE (*SP) AEROSOL 1 PUFF 2 PUFF INHALATION ×4 (09:37→20:38)
[2019-05-23] MEDS: ENOXAPARIN 40 MG/0.4 ML SYRINGE SUB-Q (13:39)
[2019-05-24] VITALS (12 sets, daily range): BP systolic 122–148; BP diastolic 76–90; PULSE 84–99; RESP 16–22; TEMP 36.2–36.9; O2SAT 90–96
[2019-05-24 06:10] LABS: Basophils Percent Auto 0.6 % (0.2-1.2); Eosinophils Absolute Auto 0.2 K/mm3 (0-0.3); Eosinophils Percent Auto 2.9 % (0-4.4); Hematocrit 41.6 % (42.0-52.0); Hemoglobin 13.7 g/dL (14.0-18.0); Immature Granulocyte Absolute 0.13 K/mm3 (0.00-0.031); Immature Granulocyte Percent A 1.9 % (0-0.5); Lymphocytes Absolute Auto 1.03 K/mm3 (0.9-3.2); Lymphocytes Percent Auto 14.7 % (18.3-44.2); Mean Corpuscular HGB Conc 32.9 g/dl (32-36); Mean Corpuscular Hemoglobin 27.8 pg (26-34); Mean Corpuscular Volume 84.6 fl (80-100); Mean Platelet Volume 10.2 fl (7.4-10.4); Monocytes Absolute Auto 0.4 K/mm3 (0.1-0.6); Monocytes Percent Auto 6.3 % (2.6-8.5); Neutrophils Absolute Auto 5.2 K/mm3 (1.3-6.7); Neutrophils Percent Auto 73.6 % (45.5-73.1); Platelet Count Result 379 k/mm3 (150-375); Red Blood Count 4.92 M/mm3 (4.6-6.20); Red Cell Distribution Width 12.3 % (11.5-14.5)
[2019-05-24 06:47] LABS: Alanine Aminotransferase 192 U/L (4-50); Albumin Level 4.1 g/dL (3.5-5.1); Alkaline Phosphatase 93 U/L (38-126); Aspartate Amino Transferase 129 U/L (17-59); Bilirubin,Total 0.7 mg/dL (0.2-1.3); Blood Urea Nitrogen 14 mg/dL (9-20); CRP 2.7 mg/dL (<1.0); Calcium 9.4 mg/dL (8.4-10.2); Carbon Dioxide 32 mmol/L (22-30); Chloride 99 mmol/L (98-107); Creatine Kinase 193 U/L (55-170); Estimated CRCL calculation 111 ml/min; Estimated Glomerular Filt Rate > 60; Glucose 114 mg/dL (75-110); Lactate Dehydrogenase 1108 U/L (313-618); Magnesium 2.5 mg/dL (1.6-2.3); Phosphorus 4.4 mg/dL (2.5-4.5); Sodium 140 mmol/L (137-145)
[2019-05-24] MEDS: ALBUTEROL SULFATE (*SP) AEROSOL 1 PUFF 2 PUFF INHALATION ×3 (09:12→22:00)
[2019-05-24] MEDS: ENOXAPARIN 40 MG/0.4 ML SYRINGE SUB-Q (09:29)
[2019-05-24] MEDS: PANTOPRAZOLE 40 MG TABLET PO (09:29)
--- NOTE | 2019-05-24 12:02 | PC.NURSE ---
Cristy GOMEZ notified of 02 desaturation to 84% on 9L NC while ambulating to bathroom - after activity 02 sat returned to 92%
--- NOTE | 2019-05-24 14:46 | PM.IMPN ---
Progress Note: A&P Assessment and Plan (1) Viral pneumonia: Code(s): J12.9 - Viral pneumonia, unspecified Status: Acute Assessment and Plan: Pneumonia, COVID-19 positive. Continue azithromycin (day 6) and albuterol MDI. Continue supportive care, IS and supplemental O2. O2 requirements unchanged in the last 2 days despite feeling better; stable on 9L HFNC. Encourage prone positioning as often and as long as he can tolerate. RN to chart in the Activity Assessment every 4 hours to help document how long he is able to tolerate proning. Repeat chest XR in AM. (2) COVID-19: Code(s): U07.1 - COVID-19 Status: Acute Assessment and Plan: See above. Trend transaminitis and other acute phase reactants (LDH elevated but stable x3 days, ferritin elevated but stable x2, CRP down to 2.7 from 15.2). (3) Acute respiratory failure with hypoxia: Code(s): J96.01 - Acute respiratory failure with hypoxia Status: Acute Assessment and Plan: Secondary to above. Wean O2 as tolerated. Subjective Date/time seen: 05/24/19 1200 Interval history: Mr. Lee is a 44yo M admitted for pneumonia and is COVID-19 positive. He tells me he is having a good day and is feeling better. He describes some mild shortness of breath with walking to the restroom. He denies chest pain or calf tenderness. He is tolerating oral intake without nausea, vomiting, or abdominal pain. Reports a normal BM this morning without diarrhea or blood in stool. Seems to be in better spirits today, wants to know when he can go home. Again encouraged prone positioning for as long and as often as he can tolerate. Review of Systems Review of Systems: Narrative: Twelve systems were reviewed with pertinent positives and negatives as per HPI. Exam Narrative: Exam Narrative: General: Male resting semi cordova's position in bed in no acute distress. HEENT: Normocephalic, EOMI, oral mucosa moist. Cardiovascular: Rate and rhythm are regular. Respiratory: Decreased breath sounds bilaterally. Respirations are even and nonlabored. Tolerating 9L HFNC at 94% at time of my exam. Abdomen: Soft, non-tender, non-distended, bowel sounds present. Extremities: Peripheral pulses intact. No edema or pain to palpation. Neuro: No focal neurological deficits. Speech is clear. Objective Data Vital Signs Vital Signs: Last Vital Signs Temp 97.8 F 05/24/19 12:00 Pulse 96 05/24/19 12:49 Resp 18 05/24/19 12:49 BP 122/76 05/24/19 12:00 Pulse Ox 92 05/24/19 13:12 Intake/Output Intake/Output: Intake & Output 05/21/19 05/22/19 05/23/19 05/24/19 23:59 23:59 23:59 23:59 Intake Total 1960 1670 1160 1420 Output Total 169 732 7628 500 Balance 1760 1120 60 920 Meds/Results Medications: Active Medications Generic Name Dose Route Start Last Admin Trade Name Freq PRN Reason Stop Dose Admin Acetaminophen 650 mg 05/19/19 14:33 Tylenol Tablet PO Q4H PRN Mild Pain (1-5) Or Fever Hydrocodone Bitart/Acetaminophen 1 tab 05/19/19 14:33 05/24/19 10:14 [place] 5-325 Mg PO 1 tab Q4H PRN Administration Pain Rated 6-10 Albuterol 2 puff 05/18/19 20:00 05/24/19 12:47 Proventil Hfa INHALATION 2 puff QIDRT VIKA Administration Albuterol/Ipratropium 1 puff 05/18/19 23:24 Combivent Respimat INHALATION QIDRT PRN Shortness Of Breath Calcium Carbonate 200 mg 05/23/19 09:44 Tums PO Q6H PRN Indigestion Enoxaparin Sodium 40 mg 05/23/19 09:40 05/24/19 09:29 Lovenox SUB-Q 40 mg DAILY VIKA Administration Azithromycin 500 mg in 250 mls @ 250 mls/hr 05/19/19 09:00 05/24/19 10:28 Zithromax IVPB Infused Q24H VIKA Infusion Ondansetron HCl 4 mg 05/18/19 16:54 Zofran Inj IV PUSH Q4H PRN Nausea Pantoprazole Sodium 40 mg 05/19/19 09:00 05/24/19 09:29
[2019-05-25] VITALS (17 sets, daily range): BP systolic 112–130; BP diastolic 72–87; PULSE 65–117; RESP 18–22; TEMP 36.6–37.2; O2SAT 86–96
[2019-05-25] MEDS: ALBUTEROL SULFATE (*SP) AEROSOL 1 PUFF 2 PUFF INHALATION ×4 (08:30→20:42)
[2019-05-25] MEDS: PANTOPRAZOLE 40 MG TABLET PO (09:22)
[2019-05-25] MEDS: ENOXAPARIN 40 MG/0.4 ML SYRINGE SUB-Q (09:22)
--- NOTE | 2019-05-25 13:19 | PM.IMPN ---
Progress Note: A&P Assessment and Plan (1) Viral pneumonia: Code(s): J12.9 - Viral pneumonia, unspecified Status: Acute Assessment and Plan: Pneumonia, COVID-19 positive. Continue azithromycin (day 7) and albuterol MDI. Continue supportive care, IS and supplemental O2. Down to 8L HFNC today from 9L yesterday. Encourage prone positioning as often and as long as he can tolerate. Nursing to chart in the Activity Assessment every 4 hours to help document how long he is able to tolerate proning. Repeat chest XR in AM. (2) COVID-19: Code(s): U07.1 - COVID-19 Status: Acute Assessment and Plan: See above. Trend transaminitis and other acute phase reactants (LDH elevated but stable x3 days, ferritin elevated but stable x2, CRP down to 2.7 from 15.2). (3) Acute respiratory failure with hypoxia: Code(s): J96.01 - Acute respiratory failure with hypoxia Status: Acute Assessment and Plan: Secondary to above. Wean O2 as tolerated. Subjective Date/time seen: 05/25/19 1230 Interval history: Mr. Lee is a 44yo M admitted for pneumonia and is COVID-19 positive. He reports he is feeling well. Still with some mild shortness of breath with walking to bathroom but otherwise offers no complaints. He is tolerating some proned positioning today. He denies chest pain or calf tenderness. He is tolerating oral intake without nausea, vomiting, or abdominal pain. Review of Systems Review of Systems: Narrative: Twelve systems were reviewed with pertinent positives and negatives as per HPI. Exam Narrative: Exam Narrative: General: Male resting semi cordova's position in bed in no acute distress, flips to prone position at the end of my encounter. HEENT: Normocephalic, EOMI, oral mucosa moist. Cardiovascular: Rate and rhythm are regular. Respiratory: Decreased breath sounds bilaterally, a little more air movement today. Respirations are even and nonlabored. Tolerating 8L HFNC at high 80s to mid 90s% at time of my exam. Abdomen: Soft, non-tender, non-distended, bowel sounds present. Extremities: Peripheral pulses intact. No edema or pain to palpation. Neuro: No focal neurological deficits. Speech is clear. Objective Data Vital Signs Vital Signs: Last Vital Signs Temp 97.8 F 05/25/19 14:00 Pulse 117 H 05/25/19 14:00 Resp 20 05/25/19 14:00 BP 112/74 05/25/19 14:00 Pulse Ox 96 05/25/19 14:05 Intake/Output Intake/Output: Intake & Output 05/22/19 05/23/19 05/24/19 05/25/19 23:59 23:59 23:59 23:59 Intake Total 1670 1160 3420 750 Output Total 550 1100 500 400 Balance 1120 60 2920 350 Meds/Results Medications: Active Medications Generic Name Dose Route Start Last Admin Trade Name Freq PRN Reason Stop Dose Admin Acetaminophen 650 mg 05/19/19 14:33 Tylenol Tablet PO Q4H PRN Mild Pain (1-5) Or Fever Hydrocodone Bitart/Acetaminophen 1 tab 05/19/19 14:33 05/25/19 09:21 [place] 5-325 Mg PO 1 tab Q4H PRN Administration Pain Rated 6-10 Albuterol 2 puff 05/18/19 20:00 05/25/19 11:49 Proventil Hfa INHALATION 2 puff QIDRT VIKA Administration Albuterol/Ipratropium 1 puff 05/18/19 23:24 Combivent Respimat INHALATION QIDRT PRN Shortness Of Breath Calcium Carbonate 200 mg 05/23/19 09:44 Tums PO Q6H PRN Indigestion Enoxaparin Sodium 40 mg 05/23/19 09:40 05/25/19 09:22 Lovenox SUB-Q 40 mg DAILY VIKA Administration Azithromycin 500 mg in 250 mls @ 250 mls/hr 05/19/19 09:00 05/25/19 10:21 Zithromax IVPB Infused Q24H VIKA Infusion Ondansetron HCl 4 mg 05/18/19 16:54 Zofran Inj IV PUSH Q4H PRN Nausea Pantoprazole Sodium 40 mg 05/19/19 09:00 05/25/19 09:22 Protonix PO 40 mg DAILY VIKA Administration Temazepam 15 mg 05/20/19 22:33 05/20/19 23:15 Restoril
[2019-05-26] VITALS (17 sets, daily range): BP systolic 109–158; BP diastolic 64–90; PULSE 87–112; RESP 16–20; TEMP 36.3–36.8; O2SAT 81–96
[2019-05-26 06:08] LABS: Basophils Absolute Auto 0.1 K/mm3 (0.0-0.1); Basophils Percent Auto 0.7 % (0.2-1.2); Eosinophils Absolute Auto 0.3 K/mm3 (0-0.3); Eosinophils Percent Auto 3.2 % (0-4.4); Immature Granulocyte Absolute 0.25 K/mm3 (0.00-0.031); Lymphocytes Percent Auto 14.4 % (18.3-44.2); Mean Corpuscular HGB Conc 33.3 g/dl (32-36); Mean Corpuscular Volume 83.9 fl (80-100); Mean Platelet Volume 10.1 fl (7.4-10.4); Monocytes Absolute Auto 0.7 K/mm3 (0.1-0.6); Monocytes Percent Auto 8.2 % (2.6-8.5); Neutrophils Absolute Auto 5.9 K/mm3 (1.3-6.7); Neutrophils Percent Auto 70.5 % (45.5-73.1); Platelet Count Result 393 k/mm3 (150-375); Red Blood Count 4.65 M/mm3 (4.6-6.20); White Blood Count 8.3 K/mm3 (4.5-10.0)
[2019-05-26 06:19] LABS: Alanine Aminotransferase 153 U/L (4-50); Albumin Level 3.9 g/dL (3.5-5.1); Alkaline Phosphatase 91 U/L (38-126); Aspartate Amino Transferase 86 U/L (17-59); Bilirubin,Total 0.6 mg/dL (0.2-1.3); Blood Urea Nitrogen 15 mg/dL (9-20); CRP 4.9 mg/dL (<1.0); Calcium 9.2 mg/dL (8.4-10.2); Carbon Dioxide 34 mmol/L (22-30); Chloride 100 mmol/L (98-107); Creatine Kinase 186 U/L (55-170); Estimated CRCL calculation 101 ml/min; Estimated Glomerular Filt Rate > 60; Glucose 102 mg/dL (75-110); Lactate Dehydrogenase 869 U/L (313-618); Magnesium 2.4 mg/dL (1.6-2.3); Phosphorus 4.5 mg/dL (2.5-4.5); Potassium 4.1 mmol/L (3.4-5.0); Sodium 140 mmol/L (137-145)
[2019-05-26] MEDS: ALBUTEROL SULFATE (*SP) AEROSOL 1 PUFF 2 PUFF INHALATION ×4 (08:08→20:43)
[2019-05-26] MEDS: ENOXAPARIN 40 MG/0.4 ML SYRINGE SUB-Q (09:16)
[2019-05-26] MEDS: PANTOPRAZOLE 40 MG TABLET PO (09:16)
--- NOTE | 2019-05-26 12:05 | PM.IMPN ---
Progress Note: A&P Assessment and Plan (1) Viral pneumonia: Code(s): J12.9 - Viral pneumonia, unspecified Status: Acute Assessment and Plan: Pneumonia, COVID-19 positive. Stop azithromycin (received 8 days) and albuterol MDI. Continue supportive care, IS and supplemental O2. Down to 6L HFNC currently from 8L yesterday. Encourage prone positioning as often and as long as he can tolerate. Repeat chest XR unchanged. (2) COVID-19: Code(s): U07.1 - COVID-19 Status: Acute Assessment and Plan: See above. Trend transaminitis and other acute phase reactants (LDH and ferritin elevated but improved, CRP down to 4.9 from 15.2). (3) Acute respiratory failure with hypoxia: Code(s): J96.01 - Acute respiratory failure with hypoxia Status: Acute Assessment and Plan: Secondary to above. Wean O2 as tolerated. Subjective Date/time seen: 05/26/19 1045 Interval history: Mr. Lee is a 44yo M admitted for pneumonia and is COVID-19 positive. He reports feeling great and offers no complaints. He tells me his breathing feels better than yesterday. He denies chest pain or calf tenderness. He tolerated breakfast without nausea, vomiting, or abdominal pain. Review of Systems Review of Systems: Narrative: Twelve systems were reviewed with pertinent positives and negatives as per HPI. Exam Narrative: Exam Narrative: General: Male resting semi cordova's position in bed in no acute distress. HEENT: Normocephalic, EOMI, oral mucosa moist. Cardiovascular: Rate and rhythm are regular. Respiratory: Decreased breath sounds bilaterally but better air movement than days prior. Respirations are even and nonlabored. Currently on 6L HFNC at time of my exam. Abdomen: Soft, non-tender, non-distended, bowel sounds present. Extremities: Peripheral pulses intact. No edema or pain to palpation. Neuro: No focal neurological deficits. Speech is clear. Objective Data Vital Signs Vital Signs: Last Vital Signs Temp 97.7 F 05/26/19 10:00 Pulse 90 05/26/19 12:08 Resp 18 05/26/19 12:08 BP 109/64 05/26/19 10:00 Pulse Ox 96 05/26/19 12:08 Intake/Output Intake/Output: Intake & Output 05/23/19 05/24/19 05/25/19 05/26/19 23:59 23:59 23:59 23:59 Intake Total 1160 3420 2260 450 Output Total 1100 500 640 200 Balance 60 2920 1620 250 Meds/Results Medications: Active Medications Generic Name Dose Route Start Last Admin Trade Name Freq PRN Reason Stop Dose Admin Acetaminophen 650 mg 05/19/19 14:33 Tylenol Tablet PO Q4H PRN Mild Pain (1-5) Or Fever Hydrocodone Bitart/Acetaminophen 1 tab 05/19/19 14:33 05/26/19 09:16 [place] 5-325 Mg PO 1 tab Q4H PRN Administration Pain Rated 6-10 Albuterol 2 puff 05/18/19 20:00 05/26/19 12:04 Proventil Hfa INHALATION 2 puff QIDRT VIKA Administration Albuterol/Ipratropium 1 puff 05/18/19 23:24 Combivent Respimat INHALATION QIDRT PRN Shortness Of Breath Calcium Carbonate 200 mg 05/23/19 09:44 Tums PO Q6H PRN Indigestion Enoxaparin Sodium 40 mg 05/23/19 09:40 05/26/19 09:16 Lovenox SUB-Q 40 mg DAILY VIKA Administration Azithromycin 500 mg in 250 mls @ 250 mls/hr 05/19/19 09:00 05/26/19 10:16 Zithromax IVPB Infused Q24H VIKA Infusion Ondansetron HCl 4 mg 05/18/19 16:54 Zofran Inj IV PUSH Q4H PRN Nausea Pantoprazole Sodium 40 mg 05/19/19 09:00 05/26/19 09:16 Protonix PO 40 mg DAILY VIKA Administration Temazepam 15 mg 05/20/19 22:33 05/20/19 23:15 Restoril PO 15 mg HS PRN Administration Insomnia Radiology Results: ITS Impressions Chest X-Ray 05/26/19 07:33 IMPRESSION: 1. Unchanged diffuse lung disease, consistent with pneumonia versus acute respiratory distress syndrome (ARDS). Labs Labs: Laboratory Tests
[2019-05-27] VITALS (11 sets, daily range): BP systolic 118–138; BP diastolic 73–87; PULSE 84–118; RESP 16–20; TEMP 36.1–36.6; O2SAT 90–94
[2019-05-27] MEDS: ALBUTEROL SULFATE (*SP) AEROSOL 1 PUFF 2 PUFF INHALATION ×2 (08:31→13:00)
[2019-05-27] MEDS: PANTOPRAZOLE 40 MG TABLET PO (09:20)
[2019-05-27] MEDS: ENOXAPARIN 40 MG/0.4 ML SYRINGE SUB-Q (09:21)
--- NOTE | 2019-05-27 14:53 | PCNWS ---
Weekly nutritional screen. Patient is tolerating current diet with adequate intake. No weight loss reported. No nutritional needs at this time.
--- NOTE | 2019-05-27 16:32 | PCRCNOTE ---
no home o2 required.
--- NOTE | 2019-05-27 16:34 | HOMEO2EVAL ---
Home Oxygen Evaluation RC: Home Oxygen (O2) Evaluation Start: 05/27/19 13:33 Freq: ONCE Status: Active Protocol: RPE Activity Type Activity Date Activity User E-Sign Co-Sign Detail Recorded Client Recorded Date Recorded By Document 05/27/19 15:10 KRM [id number] 05/27/19 16:33 KRM Document 05/27/19 15:13 KRM [id number] 05/27/19 16:33 KRM Document 05/27/19 15:25 KRM [id number] 05/27/19 16:34 KRM 05/27/19 05/27/19 05/27/19 15:10 15:13 15:25 Home O2 Evaluation Test Phase Resting Exercise Resting Pulse Oximetry (90-100 %) 91 90 91 Pulse Rate (60-100 beats/min) 98 118 H 95 Activity Tolerance Good Ambulation Distance (feet) 50 Treatment Charges O2 Evaluation
--- NOTE | 2019-05-27 16:38 | PM.DS ---
DS: Diagnosis Admitting Diagnosis Admitting Diagnosis: Viral pneumonia, unspecified Discharge Diagnosis (1) COVID-19: Code(s): U07.1 - COVID-19 Status: Acute Assessment and Plan: Date of Service 05/27/19 Mr. Lee is a 44yo M who presented to the ED for evaluation of shortness of breath and cough. Imaging showed multifocal airspace disease and Mr. Lee tested positive for COVID-19. Acute phase reactants including CRP, ferritin, LDH, LFTs were elevated and monitored. He was treated with an 8-day course of azithromycin and supportive care including supplemental oxygen and incentive spirometry. The patient was independent with activity and prone positioning was encouraged. His symptoms improved over the course of his admission although he required up to 9L oxygen high flow nasal cannula. On day of discharge, his O2 had been weaned down to 5L and home oxygen evaluation was performed, actually showing that he no longer required oxygen. He was hemodynamically stable for discharge 05/27/19 with instructions to follow up with PCP this week. (2) Viral pneumonia: Code(s): J12.9 - Viral pneumonia, unspecified Status: Acute Assessment and Plan: Viral pneumonia secondary to COVID-19. (3) Acute respiratory failure with hypoxia: Code(s): J96.01 - Acute respiratory failure with hypoxia Status: Resolved Assessment and Plan: Did not require supplemental O2 at discharge. DS: Summary Time Spent with Patient Time attestation: Total time spent providing and/or coordinating discharge services: Exam Narrative: Exam Narrative: General: Male resting semi cordova's position in bed in no acute distress. HEENT: Normocephalic, EOMI, oral mucosa moist. Cardiovascular: Rate and rhythm are regular. Respiratory: Decreased breath sounds bilaterally but better air movement than days prior. Respirations are even and nonlabored. Abdomen: Soft, non-tender, non-distended, bowel sounds present. Extremities: Peripheral pulses intact. No edema or pain to palpation. Neuro: No focal neurological deficits. Speech is clear. DS: Data Imaging Radiologist's impression: ITS Impressions Chest X-Ray 05/18/19 16:02 IMPRESSION: Bilateral nonconfluent patchy opacities most likely acute infectious process. Chest X-Ray 05/21/19 07:05 IMPRESSION: 1. Worsened diffuse lung disease, consistent with pneumonia versus pulmonary edema versus acute respiratory distress syndrome (ARDS). Chest X-Ray 05/23/19 06:53 IMPRESSION: 1. Unchanged diffuse lung disease, consistent with pneumonia versus pulmonary edema versus acute respiratory distress syndrome (ARDS). Chest X-Ray 05/26/19 07:33 IMPRESSION: 1. Unchanged diffuse lung disease, consistent with pneumonia versus acute respiratory distress syndrome (ARDS). Discharge Plan Discharge Attending physician on discharge: Sabine Munson Consulting providers: Cristy Cross ; Mickie Fairchild ; Olga Lidia Christian ; Abhijeet Nieto ; Ryan Stephen ; Bakari Lu V. Discharging Clinician: Cristy Cross Anticipated Discharge Date/Time: 05/27/19 14:00 Patient Disposition: Home, Self-Care Activity: as tolerated Diet: as tolerated Discharge Instructions: Call your primary care provider to schedule a follow up appointment within 1 week. This may be a phone call visit to help limit exposure to the virus. Your PCP will help determine when you no longer need to wear oxygen. It is important for you to stay isolated at home. You can leave home after these three things have happened: You have had no fever for at least 72 hours (that is three full days of no fever without the use medicine that reduces fevers) AND other symptoms have improved (for example, when your cough or shortness of breath have improved) AND at least 7 days have pa
== END 2019-05-27 16:30 | disposition home or self-care (01) | DRG 177 ==
LOC: ANHED 16:56 → ANH3MEDSUR 17:23
PROVIDERS: Nurse Practitioner; Physician Assistant; Admitting Provider Family Medicine; Emergency Provider Emergency Medicine; Visit Provider Hospitalist
DX: U07.1 COVID-19 (principal); J12.9 Viral pneumonia, unspecified; J96.01 Acute respiratory failure with hypoxia
CPT/HCPCS: 36415; 71045; 80048; 80053; 80076; 82550; 82728; 83605; 83615; 83735; 84100; 85025; 85027; 86140; 87040; 87070; 87205; 87804; 93005; 94618; 94640; 96361; 96365; 96366; 99285; A9270; G0378; J0456; J1650; J7030

== ENCOUNTER 2019-08-14 09:23 | Outpatient (CLI) | payer BC, SELFPAY ==
--- NOTE | 2019-08-14 14:53 | WPDSIXMINUTE ---
Six Minute Walk Six Minute Walk: DOS: 08/14/2019 REQUESTING: Dr Moreno REASON FOR TESTING: shortness of breath SIX MINUTE WALK This test was conducted per ATS guidelines. Initial saturation was 97% on room air and pulse was 93. The patient walked for 6 minutes without stopping, walking a distance of 1100 ft, 335 m. Lowest desaturation was 89% transiently. Highest pulse was 105. Heart rate and saturation returned to normal during recovery. IMPRESSION: Mild desaturation to 89% without ana hypoxemia. No supplemental O2 is indicated with exertion. Distance walked is adequate for age.
--- NOTE | 2019-08-14 14:54 | WPDPFTINT ---
PFT Interpretation PFT Interpretation: DOS: 08/14/2019 REQUESTING: Dr Moreno REASON FOR TESTING: shortness of breath PULMONARY FUNCTION TESTS Results are not reliable as the patient was not able to perform the breath hold on the expiratory limb of the flow volume loop. All testing was completed to the best of his ability. Spirometry: FEV1 is moderately decreased, 55%, 2.27 L. FVC is 52%, moderately decreased. FEV1% is normal at 79% predicted. [id number]% is decreased at 51% predicted. There is no change after bronchodilator administration. Lung volumes: TLC decreased mildly 73% consistent with a restrictive pattern. RV is 103%, normal, with an increase in RV/TLC indicating air trapping. Raw 179%, increased. Diffusion: DLCO moderately decreased 59%. Flow volume loop: Mild scooping of the expiratory limb, overall decreased size of the flow volume loop. IMPRESSION: The results are interpreted in view of his limitations, as he was not able to perform the breath hold for the lung volumes. Moderate ventilatory impairment with mild restriction, air trapping, increased airway resistance and moderate diffusion impairment. This is consistent with an overlap of mild restrictive and moderate obstructive processes. Restriction can mask obstruction. Clinical correlation is recommended. Desiree Moreno MD
== END 2019-08-14 09:24 | disposition home or self-care (01) ==
LOC: ANHPFT 09:25
PROVIDERS: Visit Provider Internal Medicine Critical Care Medicine
DX: R06.02 Shortness of breath (principal); R94.2 Abnormal results of pulmonary function studies
CPT/HCPCS: 94060; 94618; 94726; 94729

== ENCOUNTER 2019-10-09 08:29 | Outpatient (CLI) | payer OTHER, BC, SELFPAY ==
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
== END 2019-10-09 08:30 | disposition home or self-care (01) ==
LOC: ANHIMG 08:33
PROVIDERS: Visit Provider Internal Medicine Critical Care Medicine
DX: R05 Cough (principal); Z20.828 Contact with and (suspected) exposure to other viral communicable diseases; R91.8 Other nonspecific abnormal finding of lung field
CPT/HCPCS: 71046

== ENCOUNTER 2019-12-24 10:18 | Outpatient (CLI) | payer OTHER, BC, SELFPAY ==
--- NOTE | 2019-12-29 12:11 | WPDPFTINT ---
PFT Interpretation PFT Interpretation: This PFT met all criteria for ATS standards and reproducibility FEV/FVC post bronchodilator 61% FEV1 60% or 2.06 liters FVC 75% or 3.37 liters TLC 103% RV 120% RV/TLC 42% DLCO 61% when adjusted for alveolar volume but not adjusted for hemoglobin Flow volume loops showed significant expiratory coving Impression:Moderate airflow obstruction with air trapping and mildly reduced diffusion capacity. Clinical correlation is advised.
== END 2019-12-24 10:19 | disposition home or self-care (01) ==
LOC: ANHPFT 10:19
PROVIDERS: PCP Family Medicine Sports Medicine; Visit Provider Internal Medicine Critical Care Medicine
DX: R06.02 Shortness of breath (principal); U07.1 COVID-19; R94.2 Abnormal results of pulmonary function studies
CPT/HCPCS: 94375; 94726; 94729

== ENCOUNTER 2020-01-17 06:38 | Outpatient (CLI) | payer OTHER, BC, SELFPAY ==
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
== END 2020-01-17 06:39 | disposition home or self-care (01) ==
PROVIDERS: PCP Family Medicine Sports Medicine; Visit Provider Internal Medicine Critical Care Medicine
DX: R06.02 Shortness of breath (principal); R91.8 Other nonspecific abnormal finding of lung field
CPT/HCPCS: 71250

== ENCOUNTER 2020-02-25 03:03 | Outpatient (CLI) | payer BC, SELFPAY ==
[2020-02-25 19:22] LABS: SARS-CoV-2 RNA PCR Negative
== END 2020-02-25 03:04 | disposition home or self-care (01) ==
LOC: ANHCOVIDDT 03:03
PROVIDERS: PCP Family Medicine Sports Medicine; Visit Provider Internal Medicine Critical Care Medicine
DX: Z01.812 Encounter for preprocedural laboratory examination (principal); Z20.822 Contact with and (suspected) exposure to COVID-19
CPT/HCPCS: C9803; U0003; U0005

== ENCOUNTER 2020-02-28 02:44 | Day surgery (SDC) | payer OTHER, BC, SELFPAY ==
[2020-02-21 16:04] VITALS: BMI 31.1
[2020-02-28] VITALS (7 sets, daily range): BP systolic 106–139; BP diastolic 63–91; PULSE 91–99; RESP 16–21; TEMP 36.1–36.7; O2SAT 90–99
--- NOTE | ~2020-02-28 | XR_ITS ---
EXAMINATION: XR fl bronchoscopy w imaging DATE: 02/28/2020 15:24 INDICATION: Pulmonary nodules. TECHNIQUE: 5 intraoperative fluoroscopic views of the chest were obtained. I was not present. Fluoros copy exposure time was 61 seconds. COMPARISON: Chest CT 01/17/20 FINDINGS: Images demonstrate a bronchoscope in the left lung. There are innumerable pulmonary nodules . No pneumothorax. IMPRESSION: 1. Innumerable pulmonary nodules, which may be metastatic disease, infection or sarcoid. Reviewed, dictated and finalized at location A. NDER STEAMER
--- NOTE | ~2020-02-28 | XR_ITS ---
EXAMINATION: XR chest 1V portable DATE: 02/28/2020 15:25 INDICATION: Lung nodule status post bronchoscopy. TECHNIQUE: A single frontal view of the chest was obtained. COMPARISON: Chest CT 01/17/20, chest single view 05/18/19, 05/26/2019, chest 2 views 10/09/2019 FINDINGS: There are innumerable nodules throughout the lungs bilaterally. No pleural effusion or pneu mothorax. The heart size is normal. There is a chronic radiopaque foreign body centered in right ante rior chest wall abutting the pleura on the prior CT. IMPRESSION: 1. Innumerable lung nodules. The differential diagnosis includes metastatic disease, infection (inclu ding viral, mycobacterial, and fungal infection), and sarcoid. Consider ultrasound-guided core needle biopsy of an enlarged left supraclavicular lymph node seen on the prior CT if bronchoscopy does not provide a diagnosis. Reviewed, dictated and finalized at location A. MANAGER IMPRESSION: 1. Innumerable lung nodules. The differential diagnosis includes metastatic dis ease, infection (including viral, mycobacterial, and fungal infection), and maciej coid. Consider ultrasound-guided core needle biopsy of an enlarged left supracl avicular lymph node seen on the prior CT if bronchoscopy does not provide a jessica gnosis.
[2020-02-28] MEDS: LACTATED RINGERS 1,000 ML 150 ML IV CONT (12:48)
--- NOTE | 2020-02-28 13:34 | P.PNAN_ITS ---
Anes - Initial Pre Proc Eval Procedure: Operation Date: 02/28/20 13:30 Proposed Procedures p Flexible Bronchoscopy - Desiree Moreno MD Date/Time: 02/28/20 13:34 Surgeon: Desiree Moreno MD Pre Op Diagnosis: Pulmonary Nodules Patient Data Age: 44 Gender: M Height: 6 ft 2 in Weight: 111.3 kg Last Vital Signs Temp 98.0 F 02/28/20 12:57 Pulse 97 02/28/20 12:57 Resp 16 02/28/20 12:57 BP 119/83 02/28/20 12:57 Pulse Ox 97 02/28/20 12:57 Allergies Allergy/AdvReac Type Severity Reaction Status Date / Time Penicillins Allergy CHILD, Verified 02/28/20 12:55 EYES ROLLED BACK IN HEAD Home Medications Medication Instructions Recorded Confirmed Type pantoprazole 40 mg PO DAILY 05/18/19 02/21/20 History albuterol sulfate [ProAir HFA] 1 inhalation INHALATION Q4H PRN 05/27/19 02/21/20 Rx #18 gm Patient hx anesthesia problems: none Family hx anesthesia problems: none PMFSH Past Medical History Medical History (Updated 02/21/20 @ 17:50 by Desiree Moreno MD) Acute respiratory failure with hypoxia COVID-19 Multiple pulmonary nodules determined by computed tomography of lung No pertinent past medical history [id number] condition Shortness of Breath (Unknown) Surgical History Surgical History No pertinent past surgical history Family History Family History Unknown No family history of disorders Social History Social History Social History: The patient stated that he has 8 children. He works at [employer]. Lifelong nonsmoker no alcohol or illicit drugs. 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 The patient is a full code. Smoking status: Never smoker Alcohol intake: never Substance use: never Substance use type: does not use Living arrangements: with family Gender identity (if verbalized by the patient): Male Spiritual care concerns: No Agree to blood products: Yes Anes - Eval Final PreProcedure Day of Procedure 02/28/20 13:34 Patient weight: overweight Heart: regular rate and rhythm Lungs: clear to auscultation Airway: Mallampati scale class II Neurological: alert and oriented Last oral intake: >/= 8 hours ASA classification: III Emergent: no Anesthetic plan: proceed Anesthesia type and monitoring: general ETT and standard monitoring Informed Consent: The patient's anesthetic plan and its attendant risks and benefits were discussed with the patient/family/POA. Questions were solicited and answers provided to the satisfaction of the patient/family/POA.
--- NOTE | 2020-02-28 14:14 | WPDHPUPDATE1 ---
History and Physical Update Update Date/Time: 02/28/20 14:14 History and Physical has been reviewed, including an updated exam of the patient. There are NO changes in the patient's condition. Risks, benefits, and alternatives have been discussed and questions answered. Patient agrees to proceed with procedure.
[2020-02-28] MEDS: SODIUM CHLORIDE 0.9% IV 500 ML BAG 170 ML IRRIGATION (15:02)
[2020-02-28] MEDS: LIDOCAINE HCL 2% LOCAL INJ 20 ML VIAL 4 ML INFILTRATE (15:04)
[2020-02-28 17:04] LABS: Source Bronchial Fluid Bronchial Lavage
[2020-02-28 17:05] LABS: Appearance Bronchial Fluid Hazy; Color Bronchial Fluid Colorless; Eosinophils Bronchial Fluid 0 %; Lymphocytes Bronchial Fluid 9 %; Monocytes Bronchial Fluid 28 %; Neutrophils Bronchial Fluid 4 %
[2020-02-28 17:06] LABS: Macrophages Bronchial Fluid 53
[2020-02-28 17:07] LABS: Other Cells Bronchial Fluid 6 %
== END 2020-02-28 16:04 | disposition home or self-care (01) ==
PROVIDERS: PCP Family Medicine Sports Medicine; Visit Provider Internal Medicine Critical Care Medicine
PROC: 0BJ08ZZ Inspection of Tracheobronchial Tree, Via Natural or Artificial Opening Endoscopic (ICD-10-PCS; CPT 31622; principal; 2020-02-28 13:30)
DX: R91.8 Other nonspecific abnormal finding of lung field (principal); Z79.51 Long term (current) use of inhaled steroids; Z86.16 Personal history of COVID-19
CPT/HCPCS: 31628; 31632; 31624; 71045; 76000; 85999; 87015; 87102; 87116; 87206; 88305; 88312; J0330; J2405; J2704; J7040; J7120

== ENCOUNTER 2020-03-13 12:39 | Outpatient (CLI) | payer BC, SELFPAY ==
--- NOTE | 2020-03-13 12:46 | ECHO_ITS ---
Patient Info Name: Camilo Lee Age: 44 years : 1975 Gender: Male Ht: 73 in Wt: 242 lbs BSA: 2.41 m2 HR: 97 bpm BP: 131 / 82 mmHg Technical Quality: Good Exam Date: 03/13/2020 1:05 PM Exam Location: [facility] Pulmonary Patient Status: Outpatient Admit Date: 03/13/2020 Staff Ordering Physician: Desiree Moreno MD Special Events Manager: Carmelo Morales RDCS, RT Attending Provider: Desiree Moreno MD Referring Physician: Josh HOWARD; Exam Type: CA echo doppler color flow Study Info Indications R06.02 - Shortness of breath Complete two-dimensional, color flow and Doppler transthoracic echocardiogram is performed. Strain analysis performed. Summary 1. Complete two-dimensional, color flow and Doppler transthoracic echocardiogram is performed. 2. Left ventricular chamber dimension is normal. 3. Left ventricular systolic function is normal, estimated at 60-65%. 4. The left ventricular diastolic function is grade I diastolic dysfunction. 5. E/e' 10 is mildly elevated. 6. Global longitudinal strain is abnormal at -14.8%. 7. There is trace mitral valve regurgitation. Left Ventricle E/e' 10 is mildly elevated. Global longitudinal strain is abnormal at -14.8%. Left ventricular chamber dimension is normal. Left ventricular systolic function is normal, estimated at 60-65%. The left ventricular diastolic function is grade I diastolic dysfunction. Right Ventricle Right ventricular systolic function is normal and with normal TAPSE at 2.4 cm. Right ventricular chamber dimension is normal. Left Atria Left atrial chamber dimension is normal. Right Atria Right atrial chamber dimension is normal. Aortic Valve The aortic valve is trileaflet. There is no aortic valve stenosis. There is no aortic valve regurgitation. Pulmonic Valve There is no pulmonic regurgitation. Mitral Valve There is no mitral valve stenosis. There is trace mitral valve regurgitation. Tricuspid Valve There is no tricuspid valve regurgitation. Pericardium/Pleural There is no pericardial effusion. Inferior Vena Cava Normal inferior vena cava with >50% collapse upon inspiration consistent with normal right atrial pressure, 5 mmHg. Aorta The aortic root size at the sinus of Valsalva is normal. Left Ventricular Outflow Tract Name Value Normal LVOT 2D LVOT Diameter 2.0 cm LVOT Doppler LVOT Peak Gradient 4 mmHg LVOT Mean Gradient 2 mmHg LVOT VTI 17 cm LVOT VTI/AV VTI Ratio 0.8 LVOT Stroke Volume 53 ml LVOT CO 4.8 l/min LVOT CI 2.0 l/min/m2 Mitral Valve Name Value Normal MV Doppler MV Decel Weber 570 cm/s2 MV PHT
== END 2020-03-13 12:40 | disposition home or self-care (01) ==
PROVIDERS: PCP Family Medicine Sports Medicine; Visit Provider Internal Medicine Critical Care Medicine
DX: R06.02 Shortness of breath (principal)
CPT/HCPCS: 93306

== ENCOUNTER 2020-04-20 09:17 | Outpatient (CLI) | payer BC, SELFPAY ==
--- NOTE | 2020-04-20 16:43 | P.PCNPFT_ITS ---
PFT Interpretation This is a pulmonary function test with pre and post-bronchodilator spirometry, plethysmography and diffusing capacity. The test was performed and results interpreted in accordance with the 2019 and 2005 ATS/ERS Task Force guidelines respectively using the Global Lung Function Initiative-2012 reference equations. Patient demonstrated good effort and c ooperation. Reproducibility criteria were met. The quality of the pre bronchodilator spirometry maneuver was Grade A and post bronchodilator spirometry maneuver was Grade A. Findings: Spirometry: there is decreased maximal expiratory airflow at all lung volumes with a concave expiratory flow tracing. The contour the inspiratory flow tracing is normal. The pre bronchodilator FVC is 3.35 L, 68% predicted. The pre bronchodilator FEV1 is 2.54 L, 64% predicted. The FEV1: FVC ratio 76%. The post bronchodilator FVC is 3.55 L, representing a 6% increase. The post bronchodilator FEV1 is 2.50 L, representing a 1% decrease. Plethysmography: The absolute the total lung capacity is 5.99, 88% predicted. The functional residual capacity is 3.12 L, 84% predicted. The residual volume is 2.57 L, 128% predicted. Diffusing capacity: The absolute diffusion capacity is 21.7, 65% predicted. The diffusing capacity corrected for alveolar volume is 6.03, 135% predicted. In comparison to the most recent pulmonary function test on 12/24/2019 in which only a pre bronchodilator spirometry was form performed the pre bronchodilator FVC is unchanged from 3.73 L to 3.35 L. The pre bronchodilator FEV1 has increased from 2.06 L to 2.54 L. The total lung capacity has decreased from 7.04 L to 5.99 L. The functional residual capacity as remained unchanged from 3.00 L to 3.12 L. The residual volume is decreased from 2.94 for L to 2.57 L. The absolute diffusion capacity is unchanged from 18.9 to 21.7. The diffusing capacity corrected for alveolar volume is unchanged from 5.75 to 6.03. In comparison to the 1st pulmonary function test performed in our laboratory on 08/14/2019 the post bronchodilator FVC has increased from 3.08 to 3.55. The post-bronchodilator FEV1 is unchanged from 2.35 L to 2.50 L. The total lung capacity is unchanged from 5.69 L to 5.99 L. The functional residual capacity is unchanged from 3.27 L to 3.12 L. The residual volume is unchanged from 2.46 L to 2.57 L. the absolute diffusion capacity is unchanged from 19.5 to 21.7. The diffusing capacity corrected for alveolar volume has increased from 4.41 to 6.03. Impression: There is a moderate obstructive abnormality without significant improvement after inhaling a single dose of albuterol. The lung volumes are normal. The absolute diffusion capacity is mildly decreased and increased when corrected for alveolar volume. In comparison to the 1st pulmonary function test on 08/14/2019 there has been a greater than anticipated time dependent increase in post bronchodilator FVC and diffusing capacity corrected for alveolar volume with no change in post bronchodilator FEV1, lung volumes or absolute diffusing capacity. Clinical correlation is recommended.
== END 2020-04-20 09:18 | disposition home or self-care (01) ==
PROVIDERS: PCP Family Medicine Sports Medicine; Visit Provider Internal Medicine Critical Care Medicine
DX: D86.9 Sarcoidosis, unspecified (principal); R94.2 Abnormal results of pulmonary function studies
CPT/HCPCS: 94060; 94726; 94729

== ENCOUNTER 2020-04-24 08:26 | Outpatient (CLI) | payer BC, SELFPAY | END 2020-04-24 08:27 | disposition home or self-care (01) | LOC: ANHCOVIDVC 08:26 | PROVIDERS: PCP Family Medicine Sports Medicine | DX: Z23 Encounter for immunization (principal) | CPT/HCPCS: 0001A; 91300 ==

== ENCOUNTER 2020-05-15 08:23 | Outpatient (CLI) | payer BC, SELFPAY | END 2020-05-15 08:24 | disposition home or self-care (01) | LOC: ANHCOVIDVC 08:23 | PROVIDERS: PCP Family Medicine Sports Medicine | DX: Z23 Encounter for immunization (principal) | CPT/HCPCS: 0002A; 91300 ==

== ENCOUNTER 2020-10-01 07:36 | Outpatient (CLI) | payer BC, SELFPAY ==
--- NOTE | 2020-10-01 07:50 | ECHO_ITS ---
Patient Info Name: Camilo Lee Age: 45 years : 1975 Gender: Male Ht: 74 in Wt: 254 lbs BSA: 2.48 m2 HR: 96 bpm BP: 131 / 83 mmHg Heart Rhythm: Sinus Rhythm Exam Date: 10/01/2020 8:09 AM Exam Location: [facility] Pulmonary Patient Status: Outpatient Admit Date: 10/01/2020 Staff Ordering Physician: Desiree Moreno MD Commercial Decorator: Jocelin Martel RDCS Attending Provider: Desiree Moreno MD Exam Type: CA echo doppler color flow Study Info Indications - SARCOIDOSIS Complete two-dimensional, color flow and Doppler transthoracic echocardiogram is performed. Summary 1. Complete two-dimensional, color flow and Doppler transthoracic echocardiogram is performed. 2. Left ventricular chamber dimension is normal. 3. Left ventricular systolic function is normal, estimated at 60-65%. 4. The left ventricular diastolic function is grade II diastolic dysfunction. 5. E/e' 8 is minimally elevated. 6. There is trace mitral valve regurgitation. Left Ventricle E/e' 8 is minimally elevated. Left ventricular chamber dimension is normal. Left ventricular systolic function is normal, estimated at 60-65%. The left ventricular diastolic function is grade II diastolic dysfunction. Right Ventricle Right ventricular systolic function is normal and with normal TAPSE 2.1 cm. Right ventricular chamber dimension is normal. Left Atria Left atrial chamber dimension is normal. Right Atria Right atrial chamber dimension is normal. Aortic Valve The aortic valve is trileaflet. There is no aortic valve stenosis. There is no aortic valve regurgitation. Pulmonic Valve There is no pulmonic regurgitation. Mitral Valve There is no mitral valve stenosis. There is trace mitral valve regurgitation. Tricuspid Valve There is no tricuspid valve regurgitation. Pericardium/Pleural There is no pericardial effusion. Inferior Vena Cava Normal inferior vena cava with >50% collapse upon inspiration consistent with normal right atrial pressure, 5 mmHg. Aorta The aortic root size at the sinus of Valsalva is normal. Left Ventricular Outflow Tract Name Value Normal LVOT 2D LVOT Diameter 2.3 cm LVOT Doppler LVOT Peak Gradient 4 mmHg LVOT Mean Gradient 2 mmHg LVOT VTI 20 cm LVOT VTI/AV VTI Ratio 0.9 LVOT Stroke Volume 87 ml LVOT CO 6.9 l/min LVOT CI 2.8 l/min/m2 Pulmonic Valve Name Value Normal RVOT Doppler RVOT Peak Gradient 1 mmHg PV Doppler PV Peak Gradient 4 mmHg Mitral Valve
--- NOTE | 2020-10-01 12:20 | WPDSIXMINUTE ---
Six Minute Walk Procedure Procedure Performed Pulmonary Stress Test (6 min walk) Six Minute Walk This is a 6 minutes walk test. The test was performed and interpreted in accordance with the 2014 ERS/ATS task force guidelines. Findings: The patient's resting room air oxygen saturation measured by pulse oximetry was 94% and her heart rate was 90 bpm. Patient ambulated for 366 meters and oxygen saturation remained 91 to 96%. Heart rate at the end of the study was 101 bpm. The patient did not qualify for supplemental oxygen at rest or with ambulation. There are no prior studies for comparison.
--- NOTE | 2020-10-01 12:23 | WPDPFTINT ---
PFT Procedure Performed PFT Procedure Performed Spirometry with Pre/Post Bronchodilator Plethysmography (Lung Vol) Diffusing Cap (DLCO) Flow Vol Loop PFT Interpretation This is a pulmonary function test with pre and post-bronchodilator spirometry, plethysmography and diffusing capacity. The test was performed and results interpreted in accordance with the 2019 and 2005 ATS/ERS Task Force guidelines respectively using the Global Lung Function Initiative-2012 reference equations. Patient demonstrated good effort and cooperation. Reproducibility criteria were met for the pre bronchodilator spirometry but the patient could only complete 1 post bronchodilator spirometry maneuver. The quality of the pre bronchodilator spirometry maneuver was Grade A and post bronchodilator spirometry maneuver was Grade E. Findings: Spirometry: there is decreased maximal expiratory airflow at low lung volumes with a mildly concave expiratory flow tracing. The contour of the inspiratory flow tracing is normal. The pre bronchodilator FVC is 3.36 L, 73% predicted. The pre bronchodilator FEV1 is 2.50 L, 68% predicted. The FEV1: FVC ratio is 75%. The post bronchodilator FVC is 3.09 L, representing 8% decrease. The post bronchodilator FEV1 is 2.25 L, representing a 10% decrease. Plethysmography: The total lung capacity is 4.86 L, 75% predicted. The functional residual capacity is 1.98 L, 56% predicted. The residual volume is 1.43 L, 74% predicted. Diffusing capacity: The absolute diffusion capacity is 23.7, 73% predicted. The diffusing capacity corrected for alveolar volume is 4.98, 109% predicted. In comparison to the previous pulmonary function test in our lab on 04/20/2020 the pre bronchodilator FVC is unchanged from 3.35 L to 3.36 L. The pre bronchodilator FEV1 is unchanged from 2.54 L to 2.50 L. The total lung capacity has decreased from 5.99 L to 4.86 L. The functional residual capacity has decreased from 3.12 L to 1.98 L. The residual volume has decreased from 2.57 L to 1.43 L. the absolute diffusion capacity is unchanged from 21.7 to 23.7. The diffusing capacity corrected for alveolar volume has decreased from 6.03 to 4.98 Impression: There is a combined obstructive and restrictive ventilatory abnormality. There are no guidelines to assign the severity of obstruction and restriction with a combined abnormality. In my opinion, given the mildly concave expiratory flow tracing and normal FEV1: FVC ratio and mild restrictive abnormality I would state there is a mild obstructive abnormality and a mild restrictive abnormality resulting in a moderately decreased FEV1. There is no significant improvement after inhaling a single dose of albuterol. The diffusing capacity is mildly decreased but normalizes when corrected for alveolar volume. When compared to the previous pulmonary function test on 04/20/2020 there has been a greater than anticipated time dependent decrease in the total lung capacity, functional residual capacity, residual volume and diffusing capacity corrected for alveolar volume with no change in the pre bronchodilator FVC, FEV1 and absolute diffusion capacity. Clinical correlation is recommended. There are no prior studies for comparison
== END 2020-10-01 07:37 | disposition home or self-care (01) ==
LOC: ANHCARD 07:37
PROVIDERS: PCP Family Medicine Sports Medicine; Visit Provider Internal Medicine Critical Care Medicine
DX: D86.9 Sarcoidosis, unspecified (principal); R06.02 Shortness of breath; I25.10 Atherosclerotic heart disease of native coronary artery without angina pectoris; I25.84 Coronary atherosclerosis due to calcified coronary lesion; E11.9 Type 2 diabetes mellitus without complications; R94.2 Abnormal results of pulmonary function studies
CPT/HCPCS: 93306; 94060; 94618; 94726; 94729

== ENCOUNTER 2021-10-14 07:50 | Outpatient (CLI) | payer BC, SELFPAY | END 2021-10-14 07:51 | disposition home or self-care (01) | LOC: ANHAUDIO 07:52 | PROVIDERS: PCP Family Medicine Sports Medicine; Visit Provider Otolaryngology | DX: H90.3 Sensorineural hearing loss, bilateral (principal) | CPT/HCPCS: 92557; 92567 ==

== ENCOUNTER 2022-01-26 09:42 | Outpatient (CLI) | payer BC, MEDICARE, SELFPAY ==
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
== END 2022-01-26 09:43 | disposition home or self-care (01) ==
PROVIDERS: PCP Family Medicine Sports Medicine; Visit Provider Internal Medicine Critical Care Medicine
DX: B94.8 Sequelae of other specified infectious and parasitic diseases (principal); R06.02 Shortness of breath
CPT/HCPCS: 71046

== ENCOUNTER 2022-08-24 04:25 | Emergency (ER) | payer BC, MEDICARE, SELFPAY ==
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
[2022-08-24 04:31] VITALS: BP 134/80; PULSE 104; RESP 16; TEMP 36.4; O2SAT 97
--- NOTE | 2022-08-24 05:08 | ECG_ITS ---
Measurements Intervals [place] Rate: 102 P: 19 MN: 160 QRS: -14 QRSD: 102 T: 20 QT: 334 QTc: 435 Interpretive Statements SINUS TACHYCARDIA DELAYED PRECORDIAL R/S TRANSITION VOLTAGE CRITERIA FOR LVH BORDERLINE ECG ABNORMAL RHYTHM ECG COMPARED TO ECG 05/18/2019 15:40:17 NO SIGNIFICANT CHANGES Electronically Signed On 08-24-2022 7:06:13 CDT by Abhijeet Nieto D.O.
[2022-08-24 05:51] VITALS: BP 132/89; PULSE 100; RESP 22; O2SAT 96
[2022-08-24] MEDS: MAG HYDROX/AL HYDROX/SIMETH 30 ML UDC PO (05:53)
[2022-08-24] MEDS: FAMOTIDINE 20 MG/2 ML VIAL IV PUSH (05:54)
[2022-08-24 06:37] LABS: Basophils Percent Auto 0.3 % (0.2-1.2); Eosinophils Percent Auto 0.3 % (0-4.4); Hematocrit 46.6 % (42.0-52.0); Hemoglobin 15.7 g/dL (14.0-18.0); Immature Granulocyte Absolute 0.02 K/mm3 (0.00-0.031); Immature Granulocyte Percent A 0.2 % (0-0.5); Lymphocytes Percent Auto 6.6 % (18.3-44.2); Mean Corpuscular HGB Conc 33.7 g/dl (32-36); Mean Corpuscular Hemoglobin 28.9 pg (26-34); Mean Corpuscular Volume 85.7 fl (80-100); Mean Platelet Volume 10.9 fl (7.4-10.4); Monocytes Absolute Auto 0.2 K/mm3 (0.1-0.6); Monocytes Percent Auto 2.3 % (2.6-8.5); Neutrophils Absolute Auto 8.2 K/mm3 (1.3-6.7); Neutrophils Percent Auto 90.3 % (45.5-73.1); Platelet Count Result 274 k/mm3 (150-375); Red Blood Count 5.44 M/mm3 (4.6-6.20); Red Cell Distribution Width 13.3 % (11.5-14.5); White Blood Count 9.1 K/mm3 (4.5-10.0)
[2022-08-24 06:55] LABS: Alanine Aminotransferase 30 U/L (6-50); Alkaline Phosphatase 55 U/L (38-126); Anion Gap 10 mmol/L (8-16); Aspartate Amino Transferase 34 U/L (17-59); Bilirubin,Total 1.5 mg/dL (0.2-1.3); Blood Urea Nitrogen 15 mg/dL (9-20); Calcium 10.1 mg/dL (8.4-10.2); Carbon Dioxide 27 mmol/L (22-30); Chloride 104 mmol/L (98-107); Estimated CRCL calculation 116 ml/min; Estimated Glomerular Filt Rate > 60; Glucose 134 mg/dL (65-110); Magnesium 2.1 mg/dL (1.6-2.3); Sodium 141 mmol/L (137-145)
[2022-08-24 07:00] LABS: Troponin I < 0.012 ng/mL (0.000-0.034)
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
[2022-08-24 07:53] VITALS: BP 126/79; PULSE 99; RESP 16; O2SAT 95
== END 2022-08-24 07:45 | disposition home or self-care (01) ==
PROVIDERS: Emergency Provider Emergency Medicine
DX: K21.9 Gastro-esophageal reflux disease without esophagitis (principal); D86.9 Sarcoidosis, unspecified; U09.9 Post COVID-19 condition, unspecified
CPT/HCPCS: 36415; 71045; 80053; 83735; 84484; 85025; 93005; 96374; 99284; A9270

== ENCOUNTER 2022-11-19 16:43 | Emergency (ER) | payer BC, MEDICARE, SELFPAY ==
--- NOTE | 2022-11-19 16:49 | ED.BACK ---
HPI - Back Pain/Injury General Chief Complaint: Back Pain/Injury Stated Complaint: Lower Back Pain Time Seen by Provider: 11/19/22 16:49 Source: patient Mode of arrival: ambulatory Limitations: no limitations History of Present Illness HPI Narrative: Camilo is a 47-year-old male patient presenting to the clinic today with complaints of low left-sided back pain x3 days. He reports the pain initially started on the right side and then migrated to the left side. Reports that pain started after bending down to tie his shoe. This occurred also back in September and he wore a back brace and took Tylenol/Motrin for pain and improved on its own. He denies any saddle anesthesia or any loss of bowel or bladder. He denies any radiation of pain down his legs. Denies any urinary symptoms or blood in his urine Related Data Home Medications Medication Instructions Recorded Confirmed pantoprazole 40 mg tablet,delayed 40 mg PO DAILY 05/18/19 11/19/22 release Allergies Allergy/AdvReac Type Severity Reaction Status Date / Time Penicillins Allergy CHILD, Verified 11/19/22 16:50 EYES ROLLED BACK IN HEAD Review of Systems Review of Systems: Pertinent positives per HPI. Patient denies any fever, chills, rash, headache, visual changes, dizziness, cough, runny nose, sore throat, shortness of breath, chest pain, palpitations, nausea, vomiting, diarrhea, constipation, abdominal pain, or any urinary issues. [facility] Past Medical History Medical History Acute respiratory failure with hypoxia COVID-19 Multiple pulmonary nodules determined by computed tomography of lung No pertinent past medical history [id number] condition Sarcoid Shortness of Breath (Unknown) Surgical History Surgical History No pertinent past surgical history Family History Family History Mother , 2001 Cancer Father , auto accident when patient was 1 years old. No problems noted. Sibling No problems noted. Unknown No problems noted. Social History Social History Social History: The patient stated that he has 8 children. He worked at [employer]. Lifelong nonsmoker no alcohol or illicit drugs. 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 The patient is a full code. Smoking status: Never smoker Alcohol intake: never Alcohol use details: socially Substance use: never Substance use type: does not use Living arrangements: with family Occupation/Education: retired Gender identity (if verbalized by the patient): Male Spiritual care concerns: No Agree to blood products: Yes Comments At the time of my signature, I reviewed and agree with the nursing past medical, surgical, social, and family history. There is no relevant family history pertinent to the patient complaint. Exam Narrative: General: Well-developed, overweight, in no apparent distress Head: Normocephalic, atraumatic. Cardio: Regular rate and rhythm, s1 and s2 normal, no murmur appreciated. Resp: Clear to auscultation bilaterally, no rhonchi, rales, wheezing or rubs. Musculoskeletal: No deformity, tender to palpation over the left side of the musculature of the low back, nontender to palpation over the lumbar spine, grossly normal range of motion, negative straight leg test bilaterally, patellar reflexes 2+ bilaterally, lower extremity muscle strength strong and equal, peripheral pulse strong, no edema, no cyanosis, normal gait and station Course Course Emergency Course: Portions of this record may have been created with voice recognition software. Level of Care: Express Care Visit Vital Signs Vital signs: Vital signs reviewed MDM - Back Pain/Injury MDM Narrative Medical d
[2022-11-19 16:55] VITALS: BP 138/80; PULSE 79; RESP 14; TEMP 36.8; O2SAT 100
== END 2022-11-19 17:29 | disposition home or self-care (01) ==
PROVIDERS: Emergency Provider Nurse Practitioner Family
DX: S39.012A Strain of muscle, fascia and tendon of lower back, initial encounter (principal); X50.9XXA Other and unspecified overexertion or strenuous movements or postures, initial encounter; Z86.16 Personal history of COVID-19
CPT/HCPCS: 99213; G0463

== ENCOUNTER 2024-10-09 07:48 | Outpatient (CLI) | payer MEDICARE, SELFPAY ==
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
== END 2024-10-09 07:49 | disposition home or self-care (01) ==
PROVIDERS: PCP Family Medicine; Visit Provider Internal Medicine Critical Care Medicine
DX: D86.9 Sarcoidosis, unspecified (principal)
CPT/HCPCS: 71046

== ENCOUNTER 2024-10-17 10:22 | Outpatient (CLI) | payer MEDICARE, SELFPAY ==
--- OUTSIDE RECORDS SUMMARY | 2024-10-17 10:53 | XMS_ITS | Clinical Summary ---
Author Organization [facility] [place] [address] Address [address] [place] [address] Care Team Providers Care Transfer Knitter Name Role Phone Evan Ribera MD Primary Care Provider [phone] Madie Ferro MD Unavailable Allergies Active Allergy [...] 12/02/2021 Assessment & Plan (02/08/2024 3:53 PM WAGE CONCILIATOR): Wt Readings from Last 3 Encounters: 02/08/24 [...] weight Assessment & Plan (01/12/2023 2:06 PM WAGE CONCILIATOR): Wt Readings from Last 3 Encounters: 01/12/23 [...] 12/02/2021 Assessment & Plan (02/08/2024 3:53 PM WAGE CONCILIATOR): BP Readings from Last 3 Encounters: 02/08/24 [...] regimen Assessment & Plan (01/12/2023 2:06 PM WAGE CONCILIATOR): BP Readings from Last 3 Encounters: 01/12/23 [...] follow up. Last appointment was 07/03, was [id number] to have cardiac mri done but has not been back since. Will refer back to cardio Not currently symptoms but does get some dyspnea on exertion States that he does not see cardio that it was only during the hospital. 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 Would need repeat ct now and referral to rheum Encounters Date Type Department Care Team Description 08/07/2024 Telephone [facility] Primary Care at [address] [place] [address] Evan Ribera MD from Last [...] on file Legal Sex Male 6:01 PM WAGE CONCILIATOR Gender Identity Not on file Sexual Orientation Not on file Obstetrics History Last Filed Vital Signs Vital Sign Reading Time Taken Comments Blood Pressure 123/76 02/08/2024 3:48 PM WAGE CONCILIATOR Pulse 105 02/08/2024 3:48 PM WAGE CONCILIATOR Temperature - - Respiratory Rate 16 02/08/2024 3:48 PM WAGE CONCILIATOR Oxygen Saturation 96% 02/08/2024 3:48 PM WAGE CONCILIATOR Inhaled Oxygen Concentration - - Weight 111.5 kg (245 lb 14.4 oz) 02/08/2024 3:48 PM WAGE CONCILIATOR Height 188 cm (6' 2.02) 02/08/2024 3:48 PM WAGE CONCILIATOR Body Mass Index 31.56 02/08/2024 3:48 PM WAGE CONCILIATOR Plan of Treatment Health Maintenance Due Date [...] BLOOD ORDERABLES Final Resul t TIMA PINEDA ([place]) 1 [facility] Department [place] [address] * Stool DNA - Cologuard (06/05/2021 2:45 PM CDT) Scribed Stool DNA - Cologuard Negative EXACT [employer] Stool 06/05/2021 2:4 5 PM CDT us Generic External Data Provider LAB BODY FLUIDS A ND STOOLS ORDERABLES Final Result [employer] from Last 3 Months or Most Recently Relevant to Health Maintenance Insurance [facility] Address: [facility] [address] [place] [address] [id number] Care Teams Transfer Knitter Relationship Specialty Start Date End Date Evan Ribera MD PCP - General Family Medicine 12/02/21 Madie Ferro MD [address] [place] [address] [place] [address] Consulting Physician Sleep Medicine 06/10/22
--- NOTE | 2024-10-17 13:33 | WPDPFTINT ---
PFT Procedure Performed PFT Procedure Performed Flow Vol Loop Spirometry w/o Bronchodil PFT Interpretation This is a pulmonary function test with spirometry. The test was performed and results interpreted in accordance with the 2019 and 2005 ATS/ERS Task Force guidelines respectively using the Global Lung Function Initiative-2012 reference equations. Patient demonstrated good effort and cooperation. Reproducibility criteria were met. The quality of the spirometry maneuver was Grade A. Findings: Spirometry: The contour the expiratory flow tracing is normal. The contour the inspiratory flow tracing is truncated. The FVC is 3.42 L, 74% predicted. The FEV1 is 2.60 L, 71% predicted. The FEV1: FVC ratio is 76%. In comparison to previous pulmonary function testing on 10/01/2020, the pre bronchodilator FVC is unchanged from 3.36 L to 3.42 L. The pre bronchodilator FEV1 is unchanged from 2.50 L to 2.60 L. Impression: The FEV1 is less than 80% predicted and the FEV1: FVC ratio is greater than 70% consistent with Preserved Ratio Impaired Spirometry (PRISm) with a low FVC. A concurrent restrictive abnormality cannot be excluded as the lung volumes were not measured. In comparison to previous pulmonary function testing on 10/01/2020 there has been no significant change in the FVC or FEV1.
== END 2024-10-17 10:23 | disposition home or self-care (01) ==
PROVIDERS: PCP Family Medicine; Visit Provider Internal Medicine Critical Care Medicine
DX: D86.9 Sarcoidosis, unspecified (principal); R94.2 Abnormal results of pulmonary function studies
CPT/HCPCS: 94375